=== PATIENT | female | born 1945 | race African-American/Black ===

== ENCOUNTER 2016-07-25 06:27 | Emergency (ER) | payer MEDICARE ==
[~2016-07-25 06:27] MED LIST: ALPR2TAB4 PO; ASPI-482 PO; CELE100C PO; CLON0.2T PO; CLON1PAT2 TD; CYCL10TA2 PO; DICL75TA PO; ESOM40CA PO; IBUP200C9 PO; MOVANTIK25 MG PO; OLME40TA PO; SENN15TA5 PO; SIMV20TA3 PO; SPIR25TA3 PO; hydrocodone
[2016-07-25] MEDS ORDERED: ACET325T9 PO (06:56)
--- NOTE | 2016-07-25 06:56 | PHYS DOC ---
Past Medical History Past Medical History: Anxiety, Arthritis, High Cholesterol, Hypertension Additional Past Medical Histor: ECTOPIC KIDNEY Past Surgical History: Hysterectomy, Other Additional Past Surgical Histo: LUMBARECTOMY, R KNEE ARTHROSCOPY Alcohol Use: Rarely Drug Use: None Adult General Chief Complaint Chief Complaint: LOWER EXT PAIN HPI HPI 62-year-old female with a history of hypertension presenting to the emergency department today with leg cramps. She reports that early this morning she felt cramping of both calf muscles and in her foot. She was able to massage the cramps out and is currently feeling better. She recently had her blood pressure medications changed including increasing her clonidine. The pain in her calves is a cramping sensation that is nonradiating mild intermittent and without exacerbating factors. Review of systems is negative for chest pain shortness of breath abdominal pain nausea vomiting fevers chills. She denies unilateral leg swelling history of blood clotting disorder or family history of blood clotting disorder. She denies recent immobilization of her extremities. All other review of systems is negative unless otherwise noted in history of present illness. Review of Systems Review of Systems SEE ABOVE. Allergies Allergies Allergies Coded Allergies Type Severity Reaction Last Updated Verified codeine Allergy Severe CONVULSION, TACHYCARDIA, RASH 08/30/13 Yes iodine Allergy Severe CONVULSION, TACHYCARDIA, RASH 08/30/13 Yes caffeine Adverse Reaction Severe Palpitations, TACHYCARDIA 03/17/15 No ibuprofen Adverse Reaction Intermediate HX OF ULCERS 08/30/13 No Physical Exam Physical Exam Constitutional: Well developed, well nourished, no acute distress, non-toxic appearance. HENT: Normocephalic, atraumatic, bilateral external ears normal, oropharynx moist, no oral exudates, nose normal. [] Eyes: PERRLA, EOMI, conjunctiva normal, no discharge. Neck: Normal range of motion, no tenderness, supple, no stridor. [] Cardiovascular:Heart rate regular rhythm, no murmur Lungs & Thorax: Bilateral breath sounds clear to auscultation [] Abdomen: Bowel sounds normal, soft, no tenderness, no masses, no pulsatile masses. Skin: Warm, dry, no erythema, no rash. [] Back: No tenderness, no CVA tenderness. Extremities: The patient's lower extremities are warm and well perfused with a palpable pulse. 2 second cap refill present. Patient is able to wiggle toes without difficulty. Normal sensation present. Nontender along the venous system. No clinical evidence of DVT present. Neurologic: Alert and oriented X 3, normal motor function, normal sensory function, no focal deficits noted. Psychologic: Affect normal, judgement normal, mood normal. [] Current Patient Data Vital Signs Vital Signs Date Time Temp Pulse Resp B/P Pulse Ox O2 Delivery O2 Flow Rate FiO2 07/25/16 06:40 98.0 50 14 186/81 100 Room Air 98.0 Lab Values Laboratory Tests Test 07/25/16 07:09 White Blood Count 6.8x10^3/uL (4.0-11.0) Red Blood Count 4.39x10^6/uL (3.50-5.40) Hemoglobin 12.6g/dL (12.0-15.5) Hematocrit 38.9% (36.0-47.0) Mean Corpuscular Volume 89fL (79-100) Mean Corpuscular Hemoglobin 29pg (25-35) Mean Corpuscular Hemoglobin Concent 33g/dL (31-37) Red Cell Distribution Width 14.1% (11.5-14.5) Platelet Count 299x10^3/uL (140-400) Neutrophils (%) (Auto) 60% (31-73) Lymphocytes (%) (Auto) 29% (24-48) Monocytes (%) (Auto) 7% (0-9) Eosinophils (%) (Auto) 4% (0-3) H Basophils (%) (Auto) 1% (0-3) Neutrophils # (Auto) 4.0x10^3uL (1.8-7.7) Lymphocytes # (Auto) 2.0x10^3/uL (1.0-4.8) Monocytes # (Auto) 0.4x10^3/uL (0.0-1.1) Eosinophils # (Auto) 0.2x10^3/uL (0.0-0.7) Basophils # (Auto) 0.1x10^3/uL (0.0-0.2) Sodium Level 130mmol/L (136-145) L Potassium Level 3.4mmol/L (3.5-5.1) L Chloride Level 95mmol/L (98-107) L Carbon Dioxide Level 25mmol/L (21-32) Anion Gap 10 (6-14) Blood Urea Nitrogen 7mg/dL (7-20) Creatinine 0.8mg/dL (0.6-1.0) Estimated GFR (Cockcroft-Gault) 86.3 Glucose Level 103mg/dL (70-99) H Calcium Level 9.1mg/dL (8.5-10.1) Laboratory Tests 07/25/16 07:09 Laboratory Tests 07/25/16 07:09 EKG EKG [] Radiology/Procedures Radiology/Procedures [] Course & Med Decision Making Course & Med Decision Making Pertinent Labs and Imaging studies reviewed. (See chart for details) [] 62-year-old female presenting to the emergency department with muscle cramps. Blood work obtained. I offered the patient pain medication in the emergency department however she declined as her pain was improving. She was subsequent discharged home to follow up with her primary care physician in the next 2-3 days for continued chronic hypertension management. [id number] discharge instructions and return precautions given. Patient and here with her today is comfortable with plan. Dragon Disclaimer Dragon Disclaimer This electronic medical record was generated, in whole or in part, using a voice recognition dictation system. Departure Departure Impression: Primary Impression: Muscle cramps Disposition: HOME, SELF-CARE Condition: STABLE Referrals: LAURYN DE LA FUENTE MD (PCP) Patient Instructions: Muscle Cramps Additional Instructions: Thank you for allowing us to participate in your care today. Followup with your primary care physician in 3 days if your symptoms do not improve. If you do not have a primary care provider you can ask for a list of our primary care providers. Return to the emergency department you have any new or concerning findings. This should be evaluated by the primary care physician and any necessary consulting services for continued management within a few days after discharge. Return to emergency room if you have any new or concerning symptoms including but not limited to fever, chills, nausea, vomiting, intractable pain, any new rashes, chest pain, shortness of air, uncontrolled bleeding, difficulty breathing, and/or vision loss. Scripts Potassium Chloride 10 Meq Tablet.er10 Meq PO DAILY #7 TAB Prov:GILES FREEMAN MD 07/25/16 Acetaminophen (Tylenol)325 Mg Pxpxuo100 Mg PO PRN Q8HRS PRN PAIN #20 Prov:GILES FREEMAN MD 07/25/16 GILES FREEMAN MD Jul 25, 2016 06:56
[2016-07-25 07:48] LABS: BASO # 0.1 x10^3/uL (0.0-0.2); BASO % 1 % (0-3); EOS % 4 % (0-3); HEMATOCRIT 38.9 % (36.0-47.0); HEMOGLOBIN 12.6 g/dL (12.0-15.5); LYMPH % 29 % (24-48); MEAN CORPUSCULAR HEMOGLOBIN 29 pg (25-35); MEAN CORPUSCULAR HGB CONC 33 g/dL (31-37); MEAN CORPUSCULAR VOLUME 89 fL (79-100); MONO % 7 % (0-9); NEUT % 60 % (31-73); PLATELET COUNT 299 x10^3/uL (140-400); RED BLOOD COUNT 4.39 x10^6/uL (3.50-5.40); RED CELL DISTRIBUTION WIDTH 14.1 % (11.5-14.5); WHITE BLOOD COUNT 6.8 x10^3/uL (4.0-11.0)
[2016-07-25 07:56] LABS: CALCIUM 9.1 mg/dL (8.5-10.1); CREATININE 0.8 mg/dL (0.6-1.0); GFR 86.3; POTASSIUM 3.4 mmol/L (3.5-5.1)
[2016-07-25] MEDS ORDERED: POTA10TA10 PO (08:04)
[2016-07-25 08:08] VITALS: BP 106/56
[2016-07-25] MEDS ORDERED: DIAZ2TAB PO (20:14)
== END 2016-07-25 08:28 | disposition home or self-care (01) ==
LOC: ER 06:27
DX: R25.2 Cramp and spasm (principal); E78.00 Pure hypercholesterolemia, unspecified; I10 Essential (primary) hypertension; M19.90 Unspecified osteoarthritis, unspecified site; Z90.710 Acquired absence of both cervix and uterus; Z88.5 Allergy status to narcotic agent; Z91.041 Radiographic dye allergy status; Z88.6 Allergy status to analgesic agent; Z88.8 Allergy status to other drugs, medicaments and biological substances
CPT/HCPCS: 36415; 80048; 85027; 99284

== ENCOUNTER 2016-07-25 17:05 | Emergency (ER) | payer MEDICARE ==
[~2016-07-25] VITALS: Ht 172.7 cm; Wt 80.7 kg
[~2016-07-25 17:05] MED LIST changes: +ACET325T9 PO; +POTA10TA10 PO
[2016-07-25] MEDS ORDERED: DIAZEPAM 10 MG/2 ML DISP.SYRIN. IM STA (18:51)
--- NOTE | 2016-07-25 19:02 | PHYS DOC ---
Past Medical History Past Medical History: Anxiety, Arthritis, High Cholesterol, Hypertension Additional Past Medical Histor: ECTOPIC KIDNEY Past Surgical History: Hysterectomy, Other Additional Past Surgical Histo: LUMBARECTOMY, R KNEE ARTHROSCOPY Alcohol Use: None Drug Use: None Adult General Chief Complaint Chief Complaint: MUSCLE SPASM/CRAMP [facility] HPI 70-year-old female who was seen earlier today with intense leg spasm and an elevated blood pressure had a laboratory workup earlier today that was fairly unremarkable. She was sent out on by mouth potassium replacement and told to follow-up. She states her leg cramps have not improved and she again presents for evaluation. She follows up with Dr. Tenorio for her blood pressure which she states has not been well-controlled. She is speaking in complete sentences and in no acute distress at this time. Her blood pressure is elevated at 205/87. She is due to take a clonidine dose this evening Review of Systems Review of Systems Constitutional: Denies fever or chills [] Eyes: Denies change in visual acuity, redness, or eye pain [] HENT: Denies nasal congestion or sore throat [] Respiratory: Denies cough or shortness of breath [] Cardiovascular: No additional information not addressed in HPI [] GI: Denies abdominal pain, nausea, vomiting, bloody stools or diarrhea [] : Denies dysuria or hematuria [] Musculoskeletal: Denies back pain or joint pain [] Integument: Denies rash or skin lesions [] Neurologic: Denies headache, focal weakness or sensory changes [] Endocrine: Denies polyuria or polydipsia [] Current Medications Current Medications Current Medications Medications (Trade) Dose Ordered Sig/[facility] Start Time Stop Time Status Last Admin Dose Admin Diazepam (Valium) 5 mg 1X STAT 07/25/16 18:51 07/25/16 18:53 DC 07/25/16 19:26 5 MG Allergies Allergies Allergies Coded Allergies Type Severity Reaction Last Updated Verified codeine Allergy Severe CONVULSION, TACHYCARDIA, RASH 08/30/13 Yes iodine Allergy Severe CONVULSION, TACHYCARDIA, RASH 08/30/13 Yes caffeine Adverse Reaction Severe Palpitations, TACHYCARDIA 03/17/15 No ibuprofen Adverse Reaction Intermediate HX OF ULCERS 08/30/13 No Physical Exam Physical Exam Constitutional: Well developed, well nourished, no acute distress, non-toxic appearance. [] HENT: Normocephalic, atraumatic, bilateral external ears normal, oropharynx moist, no oral exudates, nose normal. [] Eyes: PERRLA, EOMI, conjunctiva normal, no discharge. [] Neck: Normal range of motion, no tenderness, supple, no stridor. [] Cardiovascular:Heart rate regular rhythm, no murmur [] Lungs & Thorax: Bilateral breath sounds clear to auscultation [] Abdomen: Bowel sounds normal, soft, no tenderness, no masses, no pulsatile masses. [] Skin: Warm, dry, no erythema, no rash. [] Back: No tenderness, no CVA tenderness. [] Extremities: No tenderness, no cyanosis, no clubbing, ROM intact, no edema. [] Neurologic: Alert and oriented X 3, normal motor function, normal sensory function, no focal deficits noted. [] Psychologic: Affect normal, judgement normal, mood normal. [] Current Patient Data Vital Signs Vital Signs Date Time Temp Pulse Resp B/P Pulse Ox O2 Delivery O2 Flow Rate FiO2 07/25/16 19:30 50 20 202/86 96 Room Air 07/25/16 17:35 98.2 98.2 EKG EKG EKG as interpreted by me shows sinus rhythm with a rate of 50 bpm. There are no acute ischemic findings on this EKG. QTc is slightly prolonged at 438 ms. Radiology/Procedures Radiology/Procedures [] Course & Med Decision Making Course & Med Decision Making Pertinent Labs and Imaging studies reviewed. (See chart for details) 70-year-old female had a laboratory workup this morning that was fairly unremarkable. An IM injection of Valium will be given for her intense spasm. Her blood pressure will be rechecked. If valium is effective, she will be discharged with a course of Valium to have at home and to follow closely with Dr. Tenorio for her blood pressure. My reassessment, the patient's muscle spasms have improved. I'll be discharging with a course of Valium and instructed her to follow closely with her primary care doctor next several days to have her blood pressure rechecked. I instructed her to avoid any stress activities a work note will be given. Dragon Disclaimer Dragon Disclaimer This electronic medical record was generated, in whole or in part, using a voice recognition dictation system. Departure Departure Impression: Primary Impression: Muscle cramps Disposition: HOME, SELF-CARE Admitting Physician: Other Condition: IMPROVED Referrals: LAURYN TENORIO MD (PCP) Patient Instructions: Muscle Cramps, [id number] Additional Instructions: Please take your medications as prescribed and continue to rest and drink plenty of fluids. Return to the ER if you develop any worsening of your symptoms. Scripts Diazepam (Valium)2 Mg Tablet2 Mg PO BID #6 TAB Prov:PONCE TOUSSAINT DO 07/25/16 PONCE TOUSSAINT DO Jul 25, 2016 19:02
[2016-07-25 19:30] VITALS: BP 202/86
[2016-07-25] MEDS ORDERED: DIAZ2TAB PO (20:14)
--- NOTE | 2016-07-26 00:21 | EKG ---
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
== END 2016-07-25 20:26 | disposition home or self-care (01) ==
LOC: ER 17:05
DX: R25.2 Cramp and spasm (principal); E78.00 Pure hypercholesterolemia, unspecified; I10 Essential (primary) hypertension; M19.90 Unspecified osteoarthritis, unspecified site; Z90.710 Acquired absence of both cervix and uterus; Z88.5 Allergy status to narcotic agent; Z88.6 Allergy status to analgesic agent; Z88.8 Allergy status to other drugs, medicaments and biological substances; Z91.041 Radiographic dye allergy status
CPT/HCPCS: 93005; 96372; 99283; J3360

== ENCOUNTER → 2016-09-06 | Outpatient (CLI) | payer MEDICARE ==
[~2016-09-06] MED LIST changes: +DIAZ2TAB PO; +IOHEXOL 180 MG/ML 10 ML VIAL. ONE; -POTA10TA10 PO; +POTA10TA12 PO; +methylPREDNISolone ACETATE 40 MG/ML VIAL. ONE; +methylPREDNISolone ACETATE 80 MG/ML VIAL. ONE
--- NOTE | 2016-09-07 00:15 | PAIN ---
DATE OF SERVICE: 09/06/2016 DIAGNOSES: Lumbar radiculopathy with lumbar degenerative disk disease and post-lumbar laminectomy syndrome. HISTORY OF PRESENT ILLNESS: This patient is a 70-year-old female who returns for followup status post caudal epidural steroid injections, last seen in April of this year. The patient did very well ____ 75% improvement, now about 50% improvement overall in the low back and left greater than right lower extremity pain. The patient reports no new motor or sensory deficits. There is still significant pain in the low back, left hip, left posterior gluteus and thigh as well into the lower leg on the left side, somewhat on the right side as well, but not nearly as intense. The patient reports pain is a 10 on a scale of 10 at its worst, is 6 at best, it does ____ awaken her from sleep. She sleeps only about 4 hours a night. She has to reposition and get out of bed, change positions and stretch at night, which has been interrupting her sleep significantly. The patient reports otherwise no new motor or sensory deficits, no new bowel or bladder incontinence or other complaints. PHYSICAL EXAMINATION: VITAL SIGNS: The patient's blood pressure 118/71, pulse 54, respirations are 18, temperature 97.4 degrees Fahrenheit, height is 5 feet 8 inches, weighs 180 pounds. GENERAL: The patient is awake, alert, oriented, appropriate, very pleasant demeanor. HEENT: Head shows normocephalic, atraumatic. Extraocular movements are intact and symmetrical. Oral cavity shows mucous membranes moist and pink. Dentition is intact. NECK: Shows anterior throat supple without palpable lymphadenopathy noted. Swallow reflex is symmetrical. CHEST: Shows normal on inspection. Breath sounds are clear to auscultation bilaterally. HEART: Shows S1 and S2 clear. No murmurs auscultated. ABDOMEN: Soft, nontender, nondistended. No palpable organomegaly is noted. No rebound or guarding demonstrated. BACK: Shows spine grossly midline, slight flattening of lumbar lordotic curvature. Well-healed surgical scar noted. Lumbar paraspinous musculature shows symmetrical on inspection with palpation shows moderate tenderness, but only in the low lumbar distribution diffusely in the paraspinous muscles without radiation. No tenderness over the sacrum or sacroiliac regions. The patient shows good rotational motion both laterally as well as extension and flexion of lumbar spine without pain reported. LOWER EXTREMITIES: Show deep tendon reflexes 2+ in the patellar, 1+ tendo-calcaneus tendons are equal. Motor exam is strong with 5/5 dorsiflexion, extension, quadriceps and hamstring flexion and symmetrical. Options were discussed with the patient and the patient's old chart was reviewed as her current medication regimen updated. Current review of systems updated today as well. We will proceed with a caudal approach epidural steroid injection today, it is the first in this series with fluoroscopic guidance. Risks were again discussed including, but not limited to bleeding, infection, possibility of epidural hematoma, subsequent neurologic compromise, dural puncture, headaches, spinal cord and/or nerve damage, side effects of steroid medication and poor results regarding pain control. The patient understands and wishes to proceed. The patient will return to clinic in approximately 2 weeks for followup, was counseled on return appointment, activity level and side effects to be aware of. Also discussed the patient getting into pool therapy as she has done this before with good results and encouraged her to keep her stretching and strengthening exercises as well as her regular physical therapy routines at home. DIAGNOSES: Lumbar radiculopathy with lumbar degenerative disk disease and post-lumbar laminectomy syndrome. PROCEDURE: Lumbar caudal approach epidural steroid injection using C-arm fluoroscopic guidance under sterile prep and drape using local anesthetic. MEDICATION INJECTED: A total of 120 mg Depo-Medrol plus 10 mL of preservative-free normal saline and 2 mL Isovue for contrast. CONDITION AT DISCHARGE: Stable. The patient tolerated the procedure well, had no complications. CAMILO PARISI MD DR: MARK/mara JOB#: [id number] / [id number]
== END | disposition home or self-care (01) ==
LOC: PNCL 07:59
PROVIDERS: ATTEND Anesthesiology
DX: M51.16 Intervertebral disc disorders with radiculopathy, lumbar region (principal); M96.1 Postlaminectomy syndrome, not elsewhere classified
CPT/HCPCS: 62323; J1030; J1040

== ENCOUNTER → 2016-11-11 | Outpatient (CLI) | payer MEDICARE ==
[~2016-11-11] MED LIST changes: -OLME40TA PO; +OLME40TA12 PO
--- NOTE | 2016-11-11 11:59 | PAIN ---
DATE OF SERVICE: 11/11/2016 PROGRESS NOTE FOR PAIN CLINIC DIAGNOSES: Lumbar radiculopathy with lumbar degenerative disk disease and post-lumbar laminectomy syndrome. HISTORY OF PRESENT ILLNESS: The patient is a 71-year-old female who returns for followup status post lumbar epidural steroid injection, caudal approach on 09/06/2016. The patient did very well with this, reports approximately 75% improvement initially, but the pain has returned now and it is only about a 10% improvement at this time. The patient reports still pain in the lower extremities, bilateral hips, into the left leg, left gluteus, posterior lateral thigh, into the lateral posterior lower leg and into the foot on the anterior and posterior as well as the anterior aspect of the left foot. The patient reports it awakens her from sleep occasionally, but still sleeps about 4-6 hours at a time. If she repositions, takes pain medications, get out of bed, change position, they seem to improve the pain. The patient reports the left side is weaker with walking, ambulating and fatigues more easily than the right. No actual loss of motor function; however, the patient reports it as aching, tingling, constant, radiating on the left side. Rates as a 5 on a scale of 10 currently and can be as low as 2 on a scale of 10; however. The patient reports no new motor or sensory deficits, no new bowel or bladder incontinence or other complaints. PHYSICAL EXAMINATION: VITAL SIGNS: Today, the patient's blood pressure is ____, pulse 58, respirations are 20, temperature 98.1 degrees Fahrenheit, height is 5 feet 8 inches, weight is ____ pounds. GENERAL: The patient is awake, alert, oriented, appropriate, very pleasant demeanor. HEENT: Head shows normocephalic, atraumatic. Extraocular movements are intact and symmetrical. Oral cavity shows mucous membranes moist and pink. Dentition is intact. NECK: Shows anterior throat is supple without palpable lymphadenopathy noted. Swallow reflex is symmetrical. CHEST: Shows normal on inspection. Breath sounds are clear to auscultation bilaterally. HEART: Shows S1 and S2 clear. No murmurs auscultated. ABDOMEN: Soft, nontender, nondistended. No palpable organomegaly is noted. No rebound or guarding demonstrated. BACK: Shows spine grossly in the midline. Well-healed surgical scarring is again noted. Lumbar paraspinous muscle shows symmetrical on inspection with palpation shows moderate tenderness only diffusely with palpation bilaterally without radiation. The patient shows full rotational motions of lumbar spine without difficulty, flexion and extension as well. EXTREMITIES: Lower extremities show deep tendon reflexes 2+ in the patellar, 1+ tendo-calcaneus tendons are equal. Motor exam is strong with 5/5 dorsiflexion, extension, quadriceps and hamstring flexion. Options were discussed with the patient. The patient's old chart was reviewed as her current medication regimen updated. Current review of systems updated today as well. We will proceed with a second in the series caudal approach epidural steroid injection today with fluoroscopic guidance. Risks were again discussed including, but not limited to bleeding, infection, possibility of epidural hematoma, subsequent neurological compromise, dural puncture, headaches, spinal cord and/or nerve damage, side effects of steroid medication and poor results regarding pain control. The patient understands and wishes to proceed. The patient will return to clinic in approximately 2 weeks for followup, was counseled on return appointment, activity level and side effects to be aware of. DIAGNOSIS: Lumbar radiculopathy with lumbar degenerative disk disease and post-lumbar laminectomy syndrome. PROCEDURES: Lumbar epidural steroid injection in caudal approach using C-arm fluoroscopic guidance under sterile prep and drape using local anesthetic. MEDICATIONS INJECTED: A total of 120 mg of Depo-Medrol plus 10 mL of preservative-free normal saline and 2 mL of Isovue for contrast. CONDITION AT DISCHARGE: Stable. The patient tolerated the procedure well, had no complications. CAMILO PARISI MD DR: MARK/mara JOB#: [id number] / [id number]
== END | disposition home or self-care (01) ==
LOC: PNCL 08:40
PROVIDERS: ATTEND Anesthesiology
DX: M51.16 Intervertebral disc disorders with radiculopathy, lumbar region (principal); M96.1 Postlaminectomy syndrome, not elsewhere classified; Z88.6 Allergy status to analgesic agent; Z91.041 Radiographic dye allergy status; Z91.048 Other nonmedicinal substance allergy status
CPT/HCPCS: 62323; J1030; J1040

== ENCOUNTER 2016-12-11 10:52 | Emergency (ER) | payer MEDICARE ==
[~2016-12-11] VITALS: Ht 172.7 cm; Wt 79.4 kg
[~2016-12-11 10:52] MED LIST changes: -IOHEXOL 180 MG/ML 10 ML VIAL. ONE; -methylPREDNISolone ACETATE 40 MG/ML VIAL. ONE; -methylPREDNISolone ACETATE 80 MG/ML VIAL. ONE
[2016-12-11 11:10] VITALS: BP 187/84
--- NOTE | 2016-12-11 12:29 | RAD ---
Left foot, 3 views, 12/11/2016: History: Fall, pain There is a mild hallux valgus deformity with mild degenerative change at the first MTP joint. No fracture or dislocation is identified. IMPRESSION: No acute bony abnormality is detected.
--- NOTE | 2016-12-11 13:22 | PHYS DOC ---
Past Medical History Past Medical History: Anxiety, Arthritis, High Cholesterol, Hypertension Additional Past Medical Histor: ECTOPIC KIDNEY Past Surgical History: Hysterectomy, Other Additional Past Surgical Histo: LUMBARECTOMY, R KNEE ARTHROSCOPY Alcohol Use: None Drug Use: None Adult General Chief Complaint Chief Complaint: FOOT INJURY PAIN HPI HPI Patient is a 71 year old female with history of hypertension high cholesterol anxiety who presents today with mild left foot pain specifically on top of her foot when ambulating that has been going on for 2 days but she states she has history of arthritis in her knees. Patient denies any trauma. Review of Systems Review of Systems Constitutional: Denies fever or chills [] Musculoskeletal: mild left foot pain Integument: Denies rash or skin lesions [] Neurologic: Denies headache, focal weakness or sensory changes [] Allergies Allergies Allergies Coded Allergies Type Severity Reaction Last Updated Verified codeine Allergy Severe CONVULSION, TACHYCARDIA, RASH 08/30/13 Yes iodine Allergy Severe CONVULSION, TACHYCARDIA, RASH 08/30/13 Yes caffeine Adverse Reaction Severe Palpitations, TACHYCARDIA 03/17/15 No ibuprofen Adverse Reaction Intermediate HX OF ULCERS 08/30/13 No Physical Exam Physical Exam Constitutional: Well developed, well nourished, no acute distress, non-toxic appearance. [] Skin: Warm, dry, no erythema, no rash. [] Back: No tenderness, no CVA tenderness. [] Extremities: Left foot appears deformed at the first MTP joint, diffuse tenderness along the first second pad metatarsals. No tenderness on the navicular bone or the base of the fifth metatarsal of the left foot. Full range of motion to the left foot and toes. +2 left pedal pulse. Cap refill less than 2 seconds the left lower extremity. Sensation intact to the right left foot. Neurologic: Alert and oriented X 3, normal motor function, normal sensory function, no focal deficits noted. [] Psychologic: Affect normal, judgement normal, mood normal. [] Current Patient Data Vital Signs Vital Signs Date Time Temp Pulse Resp B/P (MAP) Pulse Ox O2 Delivery O2 Flow Rate FiO2 12/11/16 11:10 98.4 70 16 100 Room Air 98.4 EKG EKG [] Radiology/Procedures Radiology/Procedures []PROCEDURE: FOOT LEFT 3V Left foot, 3 views, 12/11/2016: History: Fall, pain There is a mild hallux valgus deformity with mild degenerative change at the first MTP joint. No fracture or dislocation is identified. IMPRESSION: No acute bony abnormality is detected. DICTATED and SIGNED BY: PHU VALDEZ MD DATE: 12/11/16 4809 CC: ASA SILVESTRE APRN; LAURYN DE LA FUENTE MD ~ Course & Med Decision Making Course & Med Decision Making Pertinent Labs and Imaging studies reviewed. (See chart for details) Patient is in the ED with complaints of left foot pain no known injury. Left foot x-rays interpreted by radiologist were negative for any acute findings. She was noted for having arthritis on her left foot. Recommended following up with an orthopedic doctor. Recommended icing and elevating the extremity. She states she has hydrocodone at home. Recommended she continues taking it. She is allergic to ibuprofen. Provided an orthopedic doctor for follow-up. Dragon Disclaimer Dragon Disclaimer This electronic medical record was generated, in whole or in part, using a voice recognition dictation system. Departure Departure Impression: Primary Impression: DJD (degenerative joint disease), ankle and foot Disposition: 01 HOME, SELF-CARE Condition: STABLE Referrals: LAURYN DE LA FUENTE MD (PCP) MAYRA PABON MD follow up with the orthopedic doctor provided in one week Patient Instructions: Arthritis, Degenerative-Brief Additional Instructions: You were seen for arthritis of the left foot. Please follow-up with the provided orthopedic doctor in 1-2 weeks. Continue taking your pain medicine at home. Ice and elevate the affected extremity. Problem Qualifiers Primary Impression: DJD (degenerative joint disease), ankle and foot Laterality: left Qualified Codes: M19.072 - Primary osteoarthritis, left ankle and foot ASA SILVESTRE APRN Dec 11, 2016 13:22
== END 2016-12-11 13:31 | disposition home or self-care (01) ==
LOC: ER 10:52
DX: M19.072 Primary osteoarthritis, left ankle and foot (principal); F41.9 Anxiety disorder, unspecified; E78.00 Pure hypercholesterolemia, unspecified; I10 Essential (primary) hypertension; M17.0 Bilateral primary osteoarthritis of knee; Z90.710 Acquired absence of both cervix and uterus; Z88.5 Allergy status to narcotic agent; Z88.6 Allergy status to analgesic agent; Z88.8 Allergy status to other drugs, medicaments and biological substances
CPT/HCPCS: 73630; 99284

== ENCOUNTER → 2017-02-23 | Outpatient (CLI) | payer MEDICARE ==
[~2017-02-23] MED LIST changes: +IOHEXOL 180 MG/ML 10 ML VIAL. ONE; +methylPREDNISolone ACETATE 40 MG/ML VIAL. ONE; +methylPREDNISolone ACETATE 80 MG/ML VIAL. ONE
--- NOTE | 2017-02-23 10:23 | PAIN ---
DATE OF SERVICE: 02/23/2017 DIAGNOSES: Lumbar radiculopathy with lumbar degenerative disk disease and post-lumbar laminectomy syndrome. HISTORY OF PRESENT ILLNESS: The patient is a 71-year-old female who returns for followup status post lumbar caudal epidural steroid injections, last was on 11/11/2016. The patient did very well with this with approximately 75% improvement overall. The patient reports the pain now is about 50% level of improvement in the low back, bilateral lower extremities, somewhat in the mid back as well, worse with activity, standing, walking, changing positions. The patient reports pain is stabbing, aching, dull, radiating to the lower extremities bilaterally, essentially equal right and left. The patient reports it is a 10 on a scale of 10 at its worst, at its least and its average, and is a 10 today. She reports it has been awaking her from sleep occasionally, not every night. She usually feels better with lying down or sitting down, much worse with standing, walking, changing positions or flexing and bending with repetitive motions. The patient reports no new motor or sensory deficits, no new bowel or bladder incontinence or other complaints. PHYSICAL EXAMINATION: VITAL SIGNS: Today, blood pressure 155/96, pulse 68, respirations 18, temperature 98.5 degrees Fahrenheit, weight is 180 pounds. GENERAL: The patient is awake, alert, oriented, appropriate, very pleasant demeanor. HEENT: Head shows normocephalic, atraumatic. Extraocular movements intact and symmetrical. Oral cavity: Mucous membranes moist and pink. Dentition is intact. NECK: Shows anterior throat supple without palpable lymphadenopathy noted. Swallow reflex symmetrical. CHEST: Shows normal with inspection. Breath sounds clear to auscultation bilaterally. HEART: Shows S1, S2 clear. No murmurs auscultated. ABDOMEN: Soft, nontender, nondistended. No palpable organomegaly. No rebound or guarding demonstrated. BACK: The patient's back shows spine grossly in the midline, normal appearing thoracic kyphosis, some mild flattening of the lordotic curvature. Well-healed surgical scar noted in the lumbar distribution as well. Paraspinous musculature shows symmetrical on inspection, with palpation shows some moderate tenderness with palpation bilaterally, but without radiation, without atrophy or hypertrophy. The patient shows good rotational motion of lumbar spine both laterally as well as extension and flexion without significant pain reported. EXTREMITIES: Lower extremities show deep tendon reflexes at 2+ patellar tendons, 1+ tendo calcaneus tendons. Motor exam is strong with 5/5 dorsiflexion, extension, quadriceps and hamstring flexion and are equal and symmetrical as well. Peripheral pulses are 1+ posterior tibia. No peripheral edema is noted. Options were discussed with the patient. The patient's old chart was reviewed as her current medication regimen updated. Current review of systems updated today as well. We will proceed with a third in this series of caudal approach epidural steroid injection with fluoroscopic guidance. Risks were again discussed including, but not limited to bleeding, infection, possibility of epidural hematoma and subsequent neurological compromise, dural puncture headache, spinal cord and/or nerve damage, side effects of steroid medication and poor results regarding pain control. The patient understands and wished to proceed. The patient will return to clinic in approximately 2 weeks for followup, was counseled on return home, activity level, and side effects to be aware of. DIAGNOSES: Lumbar radiculopathy with lumbar degenerative disk disease and post-lumbar laminectomy syndrome. PROCEDURE: Caudal approach epidural steroid injection using C-arm fluoroscopic guidance under sterile prep and drape using local anesthetic. MEDICATION INJECTED: A total of 120 mg Depo-Medrol plus 10 mL of preservative-free normal saline and 2 mL of Isovue for contrast. CONDITION AT DISCHARGE: Stable. The patient tolerated the procedure well, had no complications. CAMILO PARISI MD DR: MARK/mara JOB#: [id number] / [id number]
== END | disposition home or self-care (01) ==
LOC: PNCL 07:32
PROVIDERS: ATTEND Anesthesiology
DX: M51.16 Intervertebral disc disorders with radiculopathy, lumbar region (principal); M96.1 Postlaminectomy syndrome, not elsewhere classified; Z88.6 Allergy status to analgesic agent; Z91.041 Radiographic dye allergy status; Z91.018 Allergy to other foods
CPT/HCPCS: 62323; J1030; J1040

== ENCOUNTER 2017-04-04 07:31 | Emergency (ER) | payer MEDICARE ==
[2017-04-04] MEDS: KETOROLAC 60 MG/2 ML INJ. IM (09:20)
== END 2017-04-04 09:47 | disposition home or self-care (01) ==
LOC: ER 07:31
DX: M25.561 Pain in right knee (principal); E78.00 Pure hypercholesterolemia, unspecified; I10 Essential (primary) hypertension; M19.90 Unspecified osteoarthritis, unspecified site; Z90.710 Acquired absence of both cervix and uterus; Z88.5 Allergy status to narcotic agent; Z88.8 Allergy status to other drugs, medicaments and biological substances; Z91.041 Radiographic dye allergy status
CPT/HCPCS: 73564; 96372; 99284-25; J1885

== ENCOUNTER → 2017-05-09 | Outpatient (CLI) | payer MEDICARE ==
[2017-05-09 11:23] LABS: ADD MAN DIFF? NO
[2017-05-09 11:32] LABS: BASO # 0.1 x10^3/uL (0.0-0.2); BASO % 1 % (0-3); EOS # 0.3 x10^3/uL (0.0-0.7); EOS % 4 % (0-3); HEMATOCRIT 41.7 % (36.0-47.0); HEMOGLOBIN 13.6 g/dL (12.0-15.5); LYMPH # 2.5 x10^3/uL (1.0-4.8); LYMPH % 33 % (24-48); MEAN CORPUSCULAR HEMOGLOBIN 29 pg (25-35); MEAN CORPUSCULAR HGB CONC 33 g/dL (31-37); MEAN CORPUSCULAR VOLUME 88 fL (79-100); MONO # 0.4 x10^3/uL (0.0-1.1); MONO % 5 % (0-9); NEUT # 4.4 x10^3uL (1.8-7.7); NEUT % 57 % (31-73); PLATELET COUNT 346 x10^3/uL (140-400); RED BLOOD COUNT 4.73 x10^6/uL (3.50-5.40); RED CELL DISTRIBUTION WIDTH 13.8 % (11.5-14.5); WHITE BLOOD COUNT 7.7 x10^3/uL (4.0-11.0)
[2017-05-09 11:42] LABS: BILIRUBIN,URINE NEGATIVE (NEG); CLARITY,URINE CLEAR; COLOR,URINE YELLOW; GLUCOSE,URINE NEGATIVE (NEG); NITRITE,URINE NEGATIVE (NEG); PROTEIN,URINE NEGATIVE (NEG-TRACE); UROBILINOGEN,URINE 0.2 mg/dL (0.2 mg/dL)
[2017-05-09 11:50] LABS: ANION GAP 10 (6-14); BLOOD UREA NITROGEN 5 mg/dL (7-20); CALCIUM 9.7 mg/dL (8.5-10.1); CARBON DIOXIDE 27 mmol/L (21-32); CHLORIDE 100 mmol/L (98-107); CREATININE 0.7 mg/dL (0.6-1.0); GFR 100.4; GLUCOSE 79 mg/dL (70-99); POTASSIUM 3.6 mmol/L (3.5-5.1); SODIUM 137 mmol/L (136-145)
[2017-05-09 11:59] LABS: BACTERIA,URINE 0 /HPF (0-FEW); RBC,URINE 0 /HPF (0-2); SQUAMOUS EPITHELIAL CELL,UR FEW /LPF; WBC,URINE RARE /HPF (0-4)
[2017-05-09 12:25] LABS: SEDIMENTATION RATE 8 (0-25)
[2017-05-09 14:18] LABS: PARTIAL THROMBOPLASTIN TIME 28 SEC (24-38); PROTHROMBIN TIME PATIENT 12.4 SEC (11.7-14.0)
[2017-05-09 22:13] LABS: MRSA BY PCR Negative (Negative)
== END | disposition home or self-care (01) ==
LOC: SURGPAT 13:28
DX: Z01.818 Encounter for other preprocedural examination (principal); M17.11 Unilateral primary osteoarthritis, right knee; I10 Essential (primary) hypertension; Z79.899 Other long term (current) drug therapy
CPT/HCPCS: 36415; 71046; 80048; 81001; 82040; 82306; 85025; 85610; 85651; 85730; 87086; 87641

== ENCOUNTER 2017-05-24 05:36 | Inpatient (IN) | payer MEDICARE ==
[2017-05-24] MEDS ORDERED: ACETAMINOPHEN 500 MG TABLET PO (06:00)
[2017-05-24] MEDS ORDERED: CELECOXIB 200 MG CAPSULE. PO (06:00)
[2017-05-24] MEDS: IV RINGERS,LACTATED 1000ML 1,000 ML IV (06:32)
[2017-05-24] MEDS ORDERED: HYDROcodone/APAP 7.5/325MG 1 TAB TABLET (06:42)
[2017-05-24] MEDS: HYDROcodone/APAP 7.5/325MG 1 TAB TABLET PO (06:44)
[2017-05-24] MEDS ORDERED: MORPHINE SULFATE 2 MG/ML DISP.SYRIN. IV (07:00)
[2017-05-24] MEDS ORDERED: LIDOCAINE 1% PF 2 ML VIAL. ID (07:00)
[2017-05-24] MEDS ORDERED: PROCHLORPERAZINE 10 MG/2 ML VIAL. IV ×2 (07:00→09:45)
[2017-05-24] MEDS ORDERED: ONDANSETRON PF 4 MG/2 ML VIAL. IV (07:00)
[2017-05-24] MEDS ORDERED: HYDROmorphone 2 MG/ML VIAL IV (07:00)
[2017-05-24] MEDS ORDERED: fentaNYL PF VIAL 100 MCG/2 ML VIAL IV ×2 (07:00→09:45)
[2017-05-24] MEDS ORDERED: LIDOCAINE 2% PF Vial for OR 5 ML VIAL. (07:07)
[2017-05-24] MEDS ORDERED: ONDANSETRON PF 4 MG/2 ML VIAL. (07:07)
[2017-05-24] MEDS ORDERED: DEXAMETHASONE SOD PHOS 20 MG/5 ML VIAL. (07:07)
[2017-05-24] MEDS ORDERED: FAMOTIDINE 20 MG/2 ML VIAL (07:07)
[2017-05-24] MEDS ORDERED: PROPOFOL 20 ML IV (07:07)
[2017-05-24] MEDS ORDERED: ROCURONIUM 50 MG/5 ML VIAL. (07:09)
[2017-05-24] MEDS ORDERED: fentaNYL PF VIAL 100 MCG/2 ML VIAL ×3 (07:09→10:30)
[2017-05-24] MEDS ORDERED: MIDAZOLAM HCL/PF 2 MG/2 ML VIAL. (07:10)
[2017-05-24] MEDS: TRANEXAMIC ACID 1,000 MG in IV NS 50ML -- 1ST BAG INJ (07:45)
[2017-05-24] MEDS ORDERED: ePHEDrine PF IN SALINE 50 MG/5 ML DISP.SYRIN IV (07:58)
[2017-05-24] MEDS ORDERED: GLYCOPYRROLATE 1 MG/5 ML VIAL. (07:58)
[2017-05-24] MEDS: VANCOMYCIN 1 GM VIAL. (08:08)
[2017-05-24] MEDS: KETOROLAC 30 MG, ROPIVacaine 0.5% PF 60 ML, EPINEPHrine 0.5 MG in IV NORMAL SALINE 100M... INT ART (08:08)
[2017-05-24] MEDS: TOBRAMYCIN POWDER 1.2 GM VIAL. (08:08)
[2017-05-24] MEDS ORDERED: hydrALAZINE 20 MG/ML VIAL. ×2 (08:14→11:06)
[2017-05-24] MEDS ORDERED: 0.9 % SODIUM CHLORIDE 50 ML VIAL. IJ (08:14)
[2017-05-24] MEDS: TRANEXAMIC ACID 1,000 MG in IV NS 50ML -- 2ND BAG INJ (08:58)
[2017-05-24] MEDS ORDERED: NEOSTIGMINE METHYLSULFATE 5 MG/5 ML SYRINGE. (09:10)
[2017-05-24] MEDS ORDERED: oxyCODONE/APAP 7.5/325 1 TAB TABLET PO (09:45)
[2017-05-24] MEDS ORDERED: oxyCODONE/APAP 5/325 1 TAB TABLET PO (09:45)
[2017-05-24] MEDS ORDERED: HYDROcodone/APAP 7.5/325MG 1 TAB TABLET PO (09:45)
[2017-05-24] MEDS ORDERED: DEXTROSE 50% 25 GM / 50ML DISP.SYRIN. IV (09:45)
[2017-05-24] MEDS ORDERED: diphenhydrAMINE 50 MG/ML VIAL IV (09:45)
[2017-05-24] MEDS ORDERED: PROCHLORPERAZINE 5 MG TABLET. PO (09:45)
[2017-05-24] MEDS ORDERED: HYDROcodone/APAP 10/325 1 TAB TABLET PO (09:45)
[2017-05-24] MEDS ORDERED: ZOLPIDEM 5 MG TABLET. PO (09:45)
[2017-05-24] MEDS ORDERED: METOCLOPRAMIDE HCL 10 MG/2 ML VIAL. IV (09:45)
[2017-05-24] MEDS ORDERED: CYCLOBENZAPRINE 10 MG TABLET. PO (10:00)
[2017-05-24] MEDS ORDERED: SEVOFLURANE 61 TO 120 MINUTES. IH (10:06)
[2017-05-24] MEDS ORDERED: SEVOFLURANE > 120 MINUTES. IH (10:06)
[2017-05-24] MEDS: fentaNYL PF VIAL 100 MCG/2 ML VIAL IV ×5 (10:40→17:18)
[2017-05-24] MEDS: hydrALAZINE 20 MG/ML VIAL. IVP (11:10)
[2017-05-24] MEDS: IV DEXTROSE 5 %-0.45 % NACL 1,000 ML IV ×2 (11:59→22:00)
[2017-05-24] MEDS: cloNIDine HCL 0.1 MG TABLET PO ×2 (13:48→21:11)
[2017-05-24] MEDS: FERROUS SULFATE 325 MG TABLET. PO (17:00)
[2017-05-24] MEDS: KETOROLAC 30 MG, BUPIVACAINE MPF 0.25% 20 ML, EPINEPHrine 0.5 MG in TOTAL VOLUME SYRING... INT ART (18:01)
[2017-05-24] MEDS: CELECOXIB 100 MG CAPSULE. PO (21:00)
[2017-05-24] MEDS: ASPIRIN ENTERIC COATED 325 MG TABLET.DR. PO (21:10)
[2017-05-24] MEDS: ALPRAZolam 1 MG TABLET PO (21:17)
[2017-05-25] MEDS: ACETAMINOPHEN 325 MG TABLET. PO (02:11)
[2017-05-25] MEDS: 0.9 % SODIUM CHLORIDE 10 ML DISP.SYRIN. IV (02:11)
[2017-05-25] MEDS: CALCIUM CARBONATE 500 MG TAB.CHEW PO (02:11)
[2017-05-25] MEDS: PANTOPRAZOLE 40 MG TABLET.DR. PO (03:00)
[2017-05-25] MEDS: KETOROLAC 30 MG, BUPIVACAINE MPF 0.25% 20 ML, EPINEPHrine 0.5 MG in TOTAL VOLUME SYRING... INT ART (05:26)
[2017-05-25 06:13] LABS: HEMATOCRIT 28.7 % (36.0-47.0); HEMOGLOBIN 9.4 g/dL (12.0-15.5); MEAN CORPUSCULAR HEMOGLOBIN 28 pg (25-35); MEAN CORPUSCULAR HGB CONC 33 g/dL (31-37); MEAN CORPUSCULAR VOLUME 86 fL (79-100); PLATELET COUNT 237 x10^3/uL (140-400); RED BLOOD COUNT 3.34 x10^6/uL (3.50-5.40); RED CELL DISTRIBUTION WIDTH 13.5 % (11.5-14.5)
[2017-05-25] MEDS: IV DEXTROSE 5 %-0.45 % NACL 1,000 ML IV (06:15)
[2017-05-25] MEDS: FERROUS SULFATE 325 MG TABLET. PO ×2 (09:12→17:00)
[2017-05-25] MEDS: CELECOXIB 100 MG CAPSULE. PO ×2 (09:12→20:56)
[2017-05-25] MEDS: ASPIRIN ENTERIC COATED 325 MG TABLET.DR. PO ×2 (09:13→20:57)
[2017-05-25] MEDS: SENNOSIDES/DOCUSATE 8.6/50MG TABLET. PO (09:16)
[2017-05-25] MEDS: FUROSEMIDE 20 MG TABLET PO (09:16)
[2017-05-25] MEDS: CHOLECALCIFEROL (VITAMIN D3) 5,000 UNIT CAPSULE PO (09:16)
[2017-05-25] MEDS: MULTIVITAMIN with MINERAL TABLET. PO (09:16)
[2017-05-25] MEDS: CYANOCOBALAMIN (VITAMIN B-12) 1,000 MCG TABLET. PO (09:16)
[2017-05-25] MEDS: POTASSIUM CHLORIDE 10 MEQ TABLET.ER. PO (09:17)
[2017-05-25] MEDS: LOSARTAN POTASSIUM 50 MG TABLET. PO (09:19)
[2017-05-25] MEDS: cloNIDine HCL 0.1 MG TABLET PO ×3 (09:21→20:56)
[2017-05-25] MEDS: ALPRAZolam 1 MG TABLET PO ×2 (11:53→22:12)
[2017-05-25] MEDS: traMADol 50 MG TABLET PO ×2 (15:07→19:32)
[2017-05-25] MEDS: MAGNESIUM HYDROXIDE 2,400 MG/30 ML ORAL.SUSP. PO (15:09)
[2017-05-25] MEDS ORDERED: BISACODYL 10 MG SUPP.RECT. PR (16:00)
[2017-05-26 04:23] LABS: HEMATOCRIT 25.1 % (36.0-47.0); HEMOGLOBIN 8.3 g/dL (12.0-15.5); MEAN CORPUSCULAR HGB CONC 33 g/dL (31-37)
[2017-05-26] MEDS: ALPRAZolam 1 MG TABLET PO ×2 (06:28→15:51)
[2017-05-26] MEDS: traMADol 50 MG TABLET PO ×4 (06:28→21:27)
[2017-05-26] MEDS: PANTOPRAZOLE 40 MG TABLET.DR. PO (06:28)
[2017-05-26] MEDS: LOSARTAN POTASSIUM 50 MG TABLET. PO (08:56)
[2017-05-26] MEDS: CHOLECALCIFEROL (VITAMIN D3) 5,000 UNIT CAPSULE PO (08:57)
[2017-05-26] MEDS: cloNIDine HCL 0.1 MG TABLET PO ×3 (08:57→21:28)
[2017-05-26] MEDS: CELECOXIB 100 MG CAPSULE. PO ×2 (08:57→21:27)
[2017-05-26] MEDS: FUROSEMIDE 20 MG TABLET PO (08:57)
[2017-05-26] MEDS: FERROUS SULFATE 325 MG TABLET. PO ×2 (08:57→17:00)
[2017-05-26] MEDS: POTASSIUM CHLORIDE 10 MEQ TABLET.ER. PO (08:58)
[2017-05-26] MEDS: MULTIVITAMIN with MINERAL TABLET. PO (08:58)
[2017-05-26] MEDS: CYANOCOBALAMIN (VITAMIN B-12) 1,000 MCG TABLET. PO (08:58)
[2017-05-26] MEDS: SENNOSIDES/DOCUSATE 8.6/50MG TABLET. PO (08:58)
[2017-05-26] MEDS: ASPIRIN ENTERIC COATED 325 MG TABLET.DR. PO ×2 (09:01→21:26)
[2017-05-27 05:12] LABS: HEMATOCRIT 23.5 % (36.0-47.0); HEMOGLOBIN 7.7 g/dL (12.0-15.5); MEAN CORPUSCULAR HGB CONC 33 g/dL (31-37)
[2017-05-27] MEDS: PANTOPRAZOLE 40 MG TABLET.DR. PO (06:21)
[2017-05-27] MEDS: MULTIVITAMIN with MINERAL TABLET. PO (07:55)
[2017-05-27] MEDS: CELECOXIB 100 MG CAPSULE. PO (07:55)
[2017-05-27] MEDS: POTASSIUM CHLORIDE 10 MEQ TABLET.ER. PO (07:55)
[2017-05-27] MEDS: POLYETHYLENE GLYCOL 3350 17 GM PACKET. PO (07:55)
[2017-05-27] MEDS: ASPIRIN ENTERIC COATED 325 MG TABLET.DR. PO (07:55)
[2017-05-27] MEDS: FERROUS SULFATE 325 MG TABLET. PO (07:55)
[2017-05-27] MEDS: FUROSEMIDE 20 MG TABLET PO (07:55)
[2017-05-27] MEDS: CHOLECALCIFEROL (VITAMIN D3) 5,000 UNIT CAPSULE PO (07:56)
[2017-05-27] MEDS: CYANOCOBALAMIN (VITAMIN B-12) 1,000 MCG TABLET. PO (07:56)
[2017-05-27] MEDS: SENNOSIDES/DOCUSATE 8.6/50MG TABLET. PO (07:56)
[2017-05-27] MEDS: cloNIDine HCL 0.1 MG TABLET PO ×2 (07:58→14:13)
[2017-05-27] MEDS: ALPRAZolam 1 MG TABLET PO ×2 (09:38→14:13)
[2017-05-27] MEDS: traMADol 50 MG TABLET PO ×3 (09:38→14:11)
[2017-05-27] MEDS: LOSARTAN POTASSIUM 50 MG TABLET. PO (09:45)
== END 2017-05-27 14:45 | disposition home health service (06) | DRG 470 ==
LOC: OPSVCIP 05:36 → 4 SOUTHEST 11:41
PROC: 0SRC0J9 Replacement of Right Knee Joint with Synthetic Substitute, Cemented, Open Approach (ICD-10-PCS; principal; 2017-05-24 07:10)
DX: M17.11 Unilateral primary osteoarthritis, right knee (principal); I10 Essential (primary) hypertension; Z82.49 Family history of ischemic heart disease and other diseases of the circulatory system; Z83.3 Family history of diabetes mellitus; Z87.11 Personal history of peptic ulcer disease; Z90.710 Acquired absence of both cervix and uterus; Z80.9 Family history of malignant neoplasm, unspecified; Z88.5 Allergy status to narcotic agent; Z88.8 Allergy status to other drugs, medicaments and biological substances; Z91.041 Radiographic dye allergy status
CPT/HCPCS: 36415; 73560; 85014; 85018; 85027; 86850; 86900; 86901; 88305; 88311; 97110-GO; 97116-GP; 97150-GP; 97162-GP; 97165-GO; 97168-GO; 97530-GO; 97530-GP; 97535-GO; C1713; J0171; J0360; J0690; J1100; J1885; J2250; J2405; J2704; J2710; J2795; J3010; J3260; J3370; J3490; J7030; J7120; S0028

== ENCOUNTER 2017-06-13 15:12 | Emergency (ER) | payer MEDICARE | END 2017-06-13 17:49 | disposition home or self-care (01) | LOC: ER 15:12 | DX: M25.561 Pain in right knee (principal); E78.00 Pure hypercholesterolemia, unspecified; I10 Essential (primary) hypertension; Z90.710 Acquired absence of both cervix and uterus; Z88.5 Allergy status to narcotic agent; Z88.6 Allergy status to analgesic agent; Z88.8 Allergy status to other drugs, medicaments and biological substances; Z91.041 Radiographic dye allergy status; M79.604 Pain in right leg | CPT/HCPCS: 73562; 93971; 99284-25 ==

== ENCOUNTER → 2017-10-28 | Outpatient (CLI) | payer MEDICARE | END | disposition home or self-care (01) | LOC: PNCL 07:38 | DX: M51.16 Intervertebral disc disorders with radiculopathy, lumbar region (principal); M17.11 Unilateral primary osteoarthritis, right knee; I10 Essential (primary) hypertension; E78.00 Pure hypercholesterolemia, unspecified; K21.0 Gastro-esophageal reflux disease with esophagitis; Z87.11 Personal history of peptic ulcer disease | CPT/HCPCS: G0463 ==

== ENCOUNTER → 2017-11-01 | Outpatient (CLI) | payer MEDICARE ==
[2017-11-01] MEDS: GADOBUTROL 7.5 MMOL/7.5 ML VIAL IV (13:11)
== END | disposition home or self-care (01) ==
LOC: KCIC MRI 11:28
DX: M48.061 Spinal stenosis, lumbar region without neurogenic claudication (principal); M48.02 Spinal stenosis, cervical region; Z88.5 Allergy status to narcotic agent; Z91.041 Radiographic dye allergy status; Z88.8 Allergy status to other drugs, medicaments and biological substances; E78.00 Pure hypercholesterolemia, unspecified; I10 Essential (primary) hypertension; Z90.710 Acquired absence of both cervix and uterus; Z90.79 Acquired absence of other genital organ(s); Z90.721 Acquired absence of ovaries, unilateral; Z82.49 Family history of ischemic heart disease and other diseases of the circulatory system; Z80.41 Family history of malignant neoplasm of ovary; Z80.3 Family history of malignant neoplasm of breast; Z79.899 Other long term (current) drug therapy; Z87.11 Personal history of peptic ulcer disease; M17.11 Unilateral primary osteoarthritis, right knee
CPT/HCPCS: 72156; 72158; A9585

== ENCOUNTER 2018-01-10 09:03 | Emergency (ER) | payer MEDICARE ==
[~2018-01-10] VITALS: Ht 170.2 cm; Wt 77.1 kg
[~2018-01-10 09:03] MED LIST changes: +ACET500T68 PO; +ASPI325T11 PO; +CHOL100013 PO; +CYAN100031 PO; +FERR325T14 PO; +FLAX1CAP PO; +FURO-69 PO; +HYDR-2762 PO; +IBUP200T58 PO; -IOHEXOL 180 MG/ML 10 ML VIAL. ONE; +IRBE300T3 PO; +MULT1TAB52 PO; +POLY17PO29 PO; -SPIR25TA3 PO; +SPIR25TA5 PO; +TRAM50TA PO; +TURM538C PO; -methylPREDNISolone ACETATE 40 MG/ML VIAL. ONE; -methylPREDNISolone ACETATE 80 MG/ML VIAL. ONE
--- NOTE | 2018-01-10 10:03 | PHYS DOC ---
Past Medical History Past Medical History: Anxiety, Arthritis, High Cholesterol, Hypertension Additional Past Medical Histor: ECTOPIC KIDNEY, RIGHT LEG LYMPHEDEMA Past Surgical History: Hysterectomy, Other Additional Past Surgical Histo: LUMBARECTOMY, R KNEE ARTHROSCOPY Alcohol Use: Rarely Drug Use: None Adult General Chief Complaint Chief Complaint: OTHER COMPLAINTS [facility] HPI Patient is a 72 year old female who presents with eating a bowl of chili last night at [employer] and after she ate it she noticed her left lower lip is numb. Patient states that it feels like as if she had a dental procedure numbed her mouth. Patient states this morning is only gotten slightly better but is still there. Review of Systems Review of Systems Constitutional: Denies fever or chills [] Eyes: Denies change in visual acuity, redness, or eye pain [] HENT: Denies nasal congestion or sore throat [] Respiratory: Denies cough or shortness of breath [] Cardiovascular: No additional information not addressed in HPI [] GI: Denies abdominal pain, nausea, vomiting, bloody stools or diarrhea [] : Denies dysuria or hematuria [] Musculoskeletal: Denies back pain or joint pain [] Integument: Denies rash or skin lesions [] Neurologic: Denies headache, focal weakness. Left lower lip numbness sensory changes [] Endocrine: Denies polyuria or polydipsia [] All other systems were reviewed and found to be within normal limits, except as documented in this note. Allergies Allergies Allergies Coded Allergies Type Severity Reaction Last Updated Verified codeine Allergy Severe CONVULSION, TACHYCARDIA, RASH 01/10/18 Yes iodine Allergy Severe CONVULSION, TACHYCARDIA, RASH 01/10/18 Yes caffeine Adverse Reaction Severe Palpitations, TACHYCARDIA 01/10/18 Yes Iodinated Contrast- Oral and IV Dye Adverse Reaction Intermediate Itching 01/10 Yes ibuprofen Adverse Reaction Intermediate HX OF ULCERS 01/10/18 Yes Physical Exam Physical Exam Constitutional: Well developed, well nourished, no acute distress, non-toxic appearance. [] HENT: Normocephalic, atraumatic, bilateral external ears normal, oropharynx moist, no oral exudates, nose normal. [] Eyes: PERRLA, EOMI, conjunctiva normal, no discharge. [] Neck: Normal range of motion, no tenderness, supple, no stridor. [] Cardiovascular:Heart rate regular rhythm, no murmur [] Lungs & Thorax: Bilateral breath sounds clear to auscultation [] Abdomen: Bowel sounds normal, soft, no tenderness, no masses, no pulsatile masses. [] Skin: Warm, dry, no erythema, no rash. [] Back: No tenderness, no CVA tenderness. [] Extremities: No tenderness, no cyanosis, no clubbing, ROM intact, no edema. [] Neurologic: Alert and oriented X 3, normal motor function, left lower lip numbness sensory abnormality, Left lower lip drooping, no focal deficits noted. [] Psychologic: Affect normal, judgement normal, mood normal. [] Current Patient Data Vital Signs Vital Signs Date Time Temp Pulse Resp B/P (MAP) Pulse Ox O2 Delivery O2 Flow Rate FiO2 01/10/18 12:05 73 18 172/85 (114) 98 Room Air 01/10/18 09:10 97.6 97.6 Lab Values Laboratory Tests Test 01/10/18 11:15 White Blood Count 9.5 x10^3/uL (4.0-11.0) Red Blood Count 5.03 x10^6/uL (3.50-5.40) Hemoglobin 14.6 g/dL (12.0-15.5) Hematocrit 44.6 % (36.0-47.0) Mean Corpuscular Volume 89 fL (79-100) Mean Corpuscular Hemoglobin 29 pg (25-35) Mean Corpuscular Hemoglobin Concent 33 g/dL (31-37) Red Cell Distribution Width 14.4 % (11.5-14.5) Platelet Count 318 x10^3/uL (140-400) Neutrophils (%) (Auto) 59 % (31-73) Lymphocytes (%) (Auto) 34 % (24-48) Monocytes (%) (Auto) 4 % (0-9) Eosinophils (%) (Auto) 3 % (0-3) Basophils (%) (Auto) 1 % (0-3) Neutrophils # (Auto) 5.5 x10^3uL (1.8-7.7) Lymphocytes # (Auto) 3.2 x10^3/uL (1.0-4.8) Monocytes # (Auto) 0.4 x10^3/uL (0.0-1.1) Eosinophils # (Auto) 0.3 x10^3/uL (0.0-0.7) Basophils # (Auto) 0.1 x10^3/uL (0.0-0.2) Prothrombin Time 11.8 SEC (11.7-14.0) Prothrombin Time INR 0.9 (0.8-1.1) Sodium Level 134 mmol/L (136-145) L Potassium Level 4.7 mmol/L (3.5-5.1) Chloride Level 100 mmol/L (98-107) Carbon Dioxide Level 26 mmol/L (21-32) Anion Gap 8 (6-14) Blood Urea Nitrogen 10 mg/dL (7-20) Creatinine 0.9 mg/dL (0.6-1.0) Estimated GFR (Cockcroft-Gault) 74.9 Glucose Level 93 mg/dL (70-99) Calcium Level 10.1 mg/dL (8.5-10.1) Troponin I Quantitative < 0.017 ng/mL (0.000-0.055) Laboratory Tests 01/10/18 11:15 Laboratory Tests 01/10/18 11:15 EKG EKG Sinus Moi, no STEMI. Read by Dr Sethi Radiology/Procedures Radiology/Procedures MRI Brain Impressions: [facility] [address] [place], [place] [id number] IMAGING REPORT Signed PATIENT: KEV MOFFETT ACCOUNT: [id number] : 1945 LOCATION: ER AGE: 72 SEX: F EXAM STATUS: REG ER ORD. PHYSICIAN: MOLINA JANSEN APRN REASON: Lip numbness PROCEDURE: BRAIN W/O CONTRAST MRI of the brain without contrast 01/10/2018 Clinical History: Left-sided facial numbness for 2 days. Technique: Unenhanced T1-weighted sagittal and axial, T2-weighted axial and coronal and FLAIR, gradient echo and diffusion-weighted axial images of the brain were obtained. Findings: No previous imaging studies are available for comparison. There is generalized parenchymal atrophy. Patchy, confluent and multiple small focal areas of increased signal intensity are seen within the periventricular and subcortical white matter of both cerebral hemispheres on the FLAIR and T2-weighted images consistent with areas of small vessel ischemic disease. No acute parenchymal abnormality is seen. No extra-axial fluid collection is seen. There is no MRI evidence of acute ischemia/infarction. Mild mucosal thickening in seen scattered throughout the paranasal sinuses. Normal flow voids are seen within the major vascular structures surrounding the brain parenchyma. Impression: No acute parenchymal abnormality is seen. Electronically signed by: Edwin Gallegos MD (01/10/2018 11:46 AM) [id number] DICTATED and SIGNED BY: EDWIN GALLEGOS MD DATE: 01/10/18 1134 Course & Med Decision Making Course & Med Decision Making Patient is a 72 year old female who presents with eating a bowl of chili last night at [employer] and after she ate it she noticed her left lower lip is numb. Patient states that it feels like as if she had a dental procedure numbed her mouth. Patient states this morning is only gotten slightly better but is still there. Patient denies headache, chest pain, shortness of air, dizziness. Patient walks with steady gait. Patient denies any weaknesses or numbness and tingling in any other part of her body. She states that she has a doctor's appointment later today already but decided come to the emergency room. Patient denies having any pain or visual changes. Pupils are PERRLA. Patient speaks in clear full sentences. Patient is alert and oriented. Patient's left lip does look slightly lower than the right lip but when she smiles is equal. Follows all commands appropriately. Patient answers all questions appropriately. Patient 's EKG shows sinus bradycardia with a heart rate of 45. But there is no STEMI. EKG was read by Dr. Sethi. Patient states that she is allergic to codeine, iodine , IV contrast, [place], Ibuprofen. Patient's past history she reports a knee replacement, arthritis, high cholesterol, hypertension, right lower leg lymphedema, hysterectomy, lumbarectomy, states she does not smoke, no drugs, no alcohol use. NIH score 1. MRI Brain shows No acute parenchymal abnormality is seen. Blood work is unremarkable. Upon reassessment the patietn denies any pain and states that the numbness is not very slight in her left lip. Patient is stable and in no distress. Patient will be discharged with follow up with Dr Tenorio. [] Dragon Disclaimer Dragon Disclaimer This electronic medical record was generated, in whole or in part, using a voice recognition dictation system. NIHSS Stroke Scale NIH Stroke Scale: NIH Stroke Scale Response (Comments) Value Level of Consciousness: 0 Alert/Responsive 0 LOC Questions: 0 Answers both correctly 0 LOC Commands: 0 Performs both tasks 0 Best Gaze: 0 Normal 0 Visual: 0 No visual loss 0 Facial Palsy: 0 Normal, symmetrical 0 Motor - Left Arm 0 No drift 0 Motor - Right Arm 0 No drift 0 Motor - Left Leg 0 No drift 0 Motor: Right Leg 0 No drift 0 Limb Ataxia: 0 Absent 0 Sensory: 1 Mid to moderate loss 1 Best Language: 0 Normal 0 Dysathria: 0 Normal 0 Extinction and Inattention: 0 Normal 0 Total 1 Departure Departure Impression: Primary Impression: Numbness and tingling Disposition: 01 HOME, SELF-CARE Admitting Physician: Sharad Tenorio Referrals: SHARAD TENORIO MD (PCP) Patient Instructions: Paresthesia Additional Instructions: FOLLOW UP WITH DR TENORIO SOON POSSIBLE MOLINA JANSEN APRN Jan 10, 2018 10:03
--- NOTE | 2018-01-10 11:09 | EKG ---
[facility] [address] [place] [address] Test Date: 2018-01-10 Test Time: 09:45:51 Pat Name: KEV MOFFETT Department: Room: Gender: F [employer] Worker: HUSEYIN : 1945 Requested By: MOLINA JANSEN Order Number: [id number] Reading MD: Tomy Park MD Measurements Intervals [place] Rate: 45 P: 35 LA: 168 QRS: 3 QRSD: 80 T: 49 QT: 442 QTc: 384 Interpretive Statements SINUS BRADYCARDIA Electronically Signed On 01-11-2018 12:27:39 CDT by Tomy Park MD
[2018-01-10] MEDS ORDERED: CLON0.2T PO (11:20)
[2018-01-10] MEDS ORDERED: POTA20TA82 PO (11:23)
[2018-01-10] MEDS ORDERED: UBID1CAP41 PO (11:23)
[2018-01-10] MEDS ORDERED: CELE100C PO (11:23)
[2018-01-10 11:28] LABS: BASO # 0.1 x10^3/uL (0.0-0.2); BASO % 1 % (0-3); EOS # 0.3 x10^3/uL (0.0-0.7); EOS % 3 % (0-3); HEMATOCRIT 44.6 % (36.0-47.0); HEMOGLOBIN 14.6 g/dL (12.0-15.5); LYMPH # 3.2 x10^3/uL (1.0-4.8); LYMPH % 34 % (24-48); MEAN CORPUSCULAR HEMOGLOBIN 29 pg (25-35); MEAN CORPUSCULAR HGB CONC 33 g/dL (31-37); MEAN CORPUSCULAR VOLUME 89 fL (79-100); MONO # 0.4 x10^3/uL (0.0-1.1); MONO % 4 % (0-9); NEUT # 5.5 x10^3uL (1.8-7.7); NEUT % 59 % (31-73); PLATELET COUNT 318 x10^3/uL (140-400); RED BLOOD COUNT 5.03 x10^6/uL (3.50-5.40); RED CELL DISTRIBUTION WIDTH 14.4 % (11.5-14.5); WHITE BLOOD COUNT 9.5 x10^3/uL (4.0-11.0)
[2018-01-10 11:38] LABS: CALCIUM 10.1 mg/dL (8.5-10.1); CREATININE 0.9 mg/dL (0.6-1.0); GFR 74.9; POTASSIUM 4.7 mmol/L (3.5-5.1)
[2018-01-10 11:39] LABS: PROTHROMBIN TIME PATIENT 11.8 SEC (11.7-14.0)
--- NOTE | 2018-01-10 11:49 | RAD ---
MRI of the brain without contrast 01/10/2018 Clinical History: Left-sided facial numbness for 2 days. Technique: Unenhanced T1-weighted sagittal and axial, T2-weighted axial and coronal and FLAIR, gradient echo and diffusion-weighted axial images of the brain were obtained. Findings: No previous imaging studies are available for comparison. There is generalized parenchymal atrophy. Patchy, confluent and multiple small focal areas of increased signal intensity are seen within the periventricular and subcortical white matter of both cerebral hemispheres on the FLAIR and T2-weighted images consistent with areas of small vessel ischemic disease. No acute parenchymal abnormality is seen. No extra-axial fluid collection is seen. There is no MRI evidence of acute ischemia/infarction. Mild mucosal thickening in seen scattered throughout the paranasal sinuses. Normal flow voids are seen within the major vascular structures surrounding the brain parenchyma. Impression: No acute parenchymal abnormality is seen. Electronically signed by: Edwin Gallegos MD (01/10/2018 11:46 AM) [id number]
[2018-01-10 12:05] VITALS: BP 172/85
== END 2018-01-10 12:12 | disposition home or self-care (01) ==
LOC: ER 09:03
DX: R20.0 Anesthesia of skin (principal); R20.2 Paresthesia of skin; E78.00 Pure hypercholesterolemia, unspecified; I10 Essential (primary) hypertension; Z88.5 Allergy status to narcotic agent; Z88.8 Allergy status to other drugs, medicaments and biological substances; Z91.041 Radiographic dye allergy status
CPT/HCPCS: 36415; 70551; 80048; 84484; 85025; 85610; 93005; 99285-25

== ENCOUNTER → 2018-05-30 | Outpatient (CLI) | payer MEDICARE ==
[2018-03-13 19:46] VITALS: BP 115/59
[~2018-05-30] MED LIST changes: +ALBU2.5V8 INH; +APIX5TAB PO; +DOXY100C2 PO; -HYDR-2762 PO; +HYDR-2765 PO; +POTA20TA82 PO; +PRED20TA PO; +UBID1CAP41 PO
== END | disposition home or self-care (01) ==
LOC: LAB 15:32
PROVIDERS: ATTEND Orthopaedic Surgery
DX: T84.84XD Pain due to internal orthopedic prosthetic devices, implants and grafts, subsequent encounter (principal); X58.XXXD Exposure to other specified factors, subsequent encounter
CPT/HCPCS: 36415; 85651; 86140

== ENCOUNTER → 2018-06-02 | Outpatient (CLI) | payer MEDICARE ==
[2018-03-13 19:46] VITALS: BP 115/59
--- NOTE | 2018-06-02 11:33 | RAD ---
CHEST PA LATERAL Clinical indications: Acute pulmonary embolism without acute cor pulmonology. COMPARISON: May 30, 2017 Findings: Old granulomatous disease is evident. No acute lung infiltrate or pleural effusion or pulmonary edema or lung mass or pneumothorax is seen. The heart size, pulmonary vasculature, mediastinum and both tiffani are unremarkable. The osseous structures appear intact. Impression: No acute radiographic abnormality is seen. Electronically signed by: Migue Atkins MD (06/02/2018 11:30 AM) [facility]
== END | disposition home or self-care (01) ==
LOC: RAD 08:52
PROVIDERS: ATTEND Internal Medicine Hematology & Oncology
DX: I26.99 Other pulmonary embolism without acute cor pulmonale (principal); D71 Functional disorders of polymorphonuclear neutrophils
CPT/HCPCS: 71046

== ENCOUNTER → 2018-06-07 | Outpatient (CLI) | payer MEDICARE ==
[2018-03-13 19:46] VITALS: BP 115/59
--- NOTE | 2018-06-07 09:37 | RAD ---
CHEST PA LATERAL CLINICAL INDICATION: POST VQ SCAN, PE COMPARISON: 06/02/2018 FINDINGS: Heart is normal in size. Couple of calcified granuloma in the left lung. No focal consolidation. No pneumothorax or pleural effusion. Visualized bony thorax is within normal limits. IMPRESSION: No acute pulmonary process. Electronically signed by: Misha Kam DO (06/07/2018 9:34 AM) [id number]
--- NOTE | 2018-06-07 09:41 | RAD ---
Indication: History of PE 3 months ago. TECHNIQUE: Nuclear medicine VQ scan with 18.0 mCi of xenon-133 for ventilation scan and 6.6 mCi of technetium 99m MAA for perfusion scan. COMPARISON: Previous exam from 03/12/2018. FINDINGS: The ventilation images demonstrate appropriate washout and washout of ventilation agent. Many of the previously seen ventilation/perfusion mismatches are not seen on current exam. Only single stable small wedge-shaped area of ventilation/perfusion mismatch is seen in the apical posterior segment of the left upper lobe. IMPRESSION: 1. Resolution of multiple previously seen ventilation/perfusion mismatches. 2. Low probability VQ scan for new PE. Electronically signed by: Misha Kam DO (06/07/2018 9:38 AM) [id number]
== END | disposition home or self-care (01) ==
LOC: NM 08:25
PROVIDERS: ATTEND Internal Medicine Hematology & Oncology
DX: I26.99 Other pulmonary embolism without acute cor pulmonale (principal); I10 Essential (primary) hypertension; Z79.01 Long term (current) use of anticoagulants
CPT/HCPCS: 71046; 78582; 96374; A9540; A9558

== ENCOUNTER → 2018-07-12 | Outpatient (CLI) | payer MEDICARE ==
[2018-03-13 19:46] VITALS: BP 115/59
[~2018-07-12] MED LIST changes: +BARIUM SULFATE 2.1% 450 ML SUSP PO ONE
--- NOTE | 2018-07-12 15:13 | KCIC ---
CT study abdomen and pelvis without IV contrast Clinical indications: Generalized abdominal pain. Chronic constipation. History of pelvic kidney. TECHNIQUE: Non-IV contrast helical CT scanning of the abdomen and pelvis was performed. GI contrast was administered per mouth. PQRS compliance Statement One or more of the following individualized dose reduction techniques were utilized for this study: 1. Automated exposure control 2. Adjustment of the mA and/or kV according to patient size 3. Use of iterative reconstruction technique COMPARISON: March 13, 2018. FINDINGS: The liver and spleen and pancreas are homogeneous in appearance on this noncontrast study. The gallbladder contains small radiopaque gallstones. No extrahepatic biliary ductal dilatation is seen. No adrenal mass is evident. Right-sided pelvic kidney is seen. No hydronephrosis or hydroureter is evident on either side. No renal mass is seen on either side on this noncontrast study. The urinary bladder wall is smooth. Uterus is surgically absent. The appendix is normal. No obstructive bowel pattern is evident. The terminal ileum is unremarkable. No free air or free fluid or mesenteric edema is seen. Moderate fecal retention is seen throughout the colon and rectosigmoid region. No focal aneurysmal dilatation of the abdominal aorta is seen. No enlarged abdominal or pelvic lymphadenopathy is evident. Calcified granuloma of the left lung base is seen. No lytic process is seen. IMPRESSION: Cholelithiasis. No acute abnormality of the abdomen or pelvis. Moderate fecal retention. Electronically signed by: Migue Atkins MD (07/12/2018 3:10 PM) [id number]
== END | disposition home or self-care (01) ==
LOC: KCIC CT 13:25
PROVIDERS: ATTEND Internal Medicine Gastroenterology
DX: K80.20 Calculus of gallbladder without cholecystitis without obstruction (principal); K59.00 Constipation, unspecified; J84.10 Pulmonary fibrosis, unspecified; Z90.710 Acquired absence of both cervix and uterus
CPT/HCPCS: 74176

== ENCOUNTER 2019-01-17 12:25 | Observation (INO) | payer MEDICARE ==
[~2019-01-17] VITALS: Ht 172.7 cm; Wt 76.7 kg
[~2019-01-17 12:25] MED LIST changes: -BARIUM SULFATE 2.1% 450 ML SUSP PO ONE; -CLON1PAT2 TD; +CLON1PAT6 TD; +SIMV20TA18 PO; -SIMV20TA3 PO
[2019-01-17] MEDS ORDERED: IV NORMAL SALINE 1000ML BAG 1,000 ML IV SCH ×2 (12:53→15:20)
[2019-01-17] MEDS ORDERED: ONDANSETRON PF 4 MG/2 ML VIAL. IV ONE (13:00)
[2019-01-17] MEDS ORDERED: fentaNYL PF VIAL 100 MCG/2 ML VIAL IV ONE (13:00)
--- NOTE | 2019-01-17 13:36 | RAD ---
CT Abdomen and Pelvis without contrast History: Upper abdominal pain Technique: Noncontrast CT imaging was performed of the abdomen and pelvis. Multiplanar images are reviewed. Exposure: One or more of the following individualized dose reduction techniques were utilized for this examination: 1. Automated exposure control 2. Adjustment of the mA and/or kV according to patient size 3. Use of iterative reconstruction technique. Comparison: March 13, 2018 Findings: There is calcified granuloma of the visualized left lower lobe. There is cholelithiasis. There is no adrenal nodularity. Accurate evaluation of abdominal visceral organs is limited without intravenous contrast, no obvious focal abnormality of the liver, spleen, pancreas. There is again right pelvic kidney. There is no hydronephrosis. Accurate evaluation of abdominal visceral organs is limited without oral contrast. Bowel is not significantly dilated. There is no free air or free fluid. There are some air-fluid levels in the colon. There is sigmoid diverticulosis. In is difficult to exclude degree of sigmoid and descending colon wall thickening on this exam, no adjacent inflammatory-type change. Appendix is not confidently identified on this exam, no significant pericecal inflammatory type change. There is some scattered atherosclerotic calcification of abdominal aorta and iliac arteries. There is multilevel lumbar facet degenerative change. There is advanced L4-5 degenerative disc disease. There is grade 1 anterior spondylolisthesis L4-5. There is probable moderate to severe spinal stenosis at L4-5. There is likely at least moderate left greater than right L4-5 neural foramina compromise. There is mild lumbar levoscoliosis. Impression: 1. There is cholelithiasis. 2. There is again right pelvic kidney. There is no hydronephrosis of either kidney. 3. It is difficult to exclude component of sigmoid and descending colonic wall thickening as could be seen with colitis in the appropriate clinical setting although findings could be due to incomplete distention. There are some nonspecific air-fluid levels in the colon. Appendix is not confidently identified on this exam. There is sigmoid diverticulosis. 4. There is grade 1 anterior spondylolisthesis L4-5 at which there is facet degenerative change. There is also fairly advanced L4-5 degenerative disc disease and suspected moderate to severe spinal stenosis, also bilateral neural foramina compromise. Electronically signed by: Antione Wu MD (01/17/2019 1:33 PM) [id number]
[2019-01-17 13:43] LABS: BASO % 0 % (0-3); EOS # 0.1 x10^3/uL (0.0-0.7); EOS % 1 % (0-3); HEMATOCRIT 40.8 % (36.0-47.0); HEMOGLOBIN 13.4 g/dL (12.0-15.5); LYMPH # 0.8 x10^3/uL (1.0-4.8); LYMPH % 6 % (24-48); MEAN CORPUSCULAR HEMOGLOBIN 29 pg (25-35); MEAN CORPUSCULAR HGB CONC 33 g/dL (31-37); MEAN CORPUSCULAR VOLUME 89 fL (79-100); MONO # 0.4 x10^3/uL (0.0-1.1); MONO % 3 % (0-9); NEUT # 11.6 x10^3/uL (1.8-7.7); NEUT % 90 % (31-73); PLATELET COUNT 264 x10^3/uL (140-400); RED BLOOD COUNT 4.58 x10^6/uL (3.50-5.40); RED CELL DISTRIBUTION WIDTH 14.6 % (11.5-14.5); WHITE BLOOD COUNT 12.9 x10^3/uL (4.0-11.0)
[2019-01-17 13:52] LABS: PROTHROMBIN TIME PATIENT 13.8 SEC (11.7-14.0)
[2019-01-17 13:55] LABS: CALCIUM 8.9 mg/dL (8.5-10.1); CREATININE 0.9 mg/dL (0.6-1.0); GFR 74.7; POTASSIUM 3.8 mmol/L (3.5-5.1)
[2019-01-17 14:01] LABS: ALBUMIN 3.5 g/dL (3.4-5.0); TOTAL BILIRUBIN 0.4 mg/dL (0.2-1.0); TOTAL PROTEIN 6.9 g/dL (6.4-8.2)
[2019-01-17 14:10] LABS: % EOS 1 % (0-5); % LYMPHS 7 % (24-48); % MONOS 4 % (0-10); % SEGS 88 % (35-66); PLT ESTIMATE ADEQUATE (ADEQUATE); TOXIC VACUOLATION SLIGHT
[2019-01-17 14:16] LABS: BILIRUBIN,URINE NEGATIVE (NEG); CLARITY,URINE CLEAR; COLOR,URINE YELLOW; NITRITE,URINE NEGATIVE (NEG); PROTEIN,URINE NEGATIVE (NEG-TRACE); UROBILINOGEN,URINE 0.2 mg/dL (0.2 mg/dL)
--- NOTE | 2019-01-17 14:18 | PHYS DOC ---
Past Medical History Past Medical History: Anxiety, Arthritis, Hypertension Additional Past Medical Histor: ECTOPIC KIDNEY, RIGHT LEG LYMPHEDEMA Past Surgical History: Hysterectomy, Other Additional Past Surgical Histo: LUMBARECTOMY, R KNEE ARTHROSCOPY Alcohol Use: Rarely Drug Use: None Adult General Chief Complaint Chief Complaint: ABDOMINAL PAIN [facility] HPI Patient is a 73 year old female who presents with complaining of abdominal pain. Patient complaining of sudden onset of left upper quadrant pain since 2200 last night that became as a generalized abdominal pain. Patient denies radiation of pain and rated her pain 8/10. Patient complaining of anorexia and nasal conge stion that caused nausea for her. Patient complaining of chronic constipation and is stationed formed bowel movement today with improvement of her pain. She did not have abdominal surgery. She denies fever and chills, chest pain, shortness of breath, cough, urinary symptoms, sick contact, history of the same pain. Review of Systems Review of Systems Constitutional: Denies fever or chills [] Eyes: Denies change in visual acuity, redness, or eye pain [] HENT: Denies nasal congestion or sore throat [] Respiratory: Denies cough or shortness of breath [] Cardiovascular: No additional information not addressed in HPI [] GI: Reports abdominal pain, nausea, constipation, denies vomiting, bloody stools or diarrhea [] : Denies dysuria or hematuria [] Musculoskeletal: Denies back pain or joint pain [] Integument: Denies rash or skin lesions [] Neurologic: Denies headache, focal weakness or sensory changes [] Endocrine: Denies polyuria or polydipsia [] All other systems were reviewed and found to be within normal limits, except as documented in this note. Current Medications Current Medications Current Medications Medications (Trade) Dose Ordered Sig/[facility] Start Time Stop Time Status Last Admin Dose Admin Fentanyl Citrate (Fentanyl 2ml Vial) 50 mcg 1X ONCE 01/17/19 13:00 01/17/19 13:01 DC 01/17/19 13:39 50 MCG Ondansetron HCl (Zofran) 4 mg 1X ONCE 01/17/19 13:00 01/17/19 13:01 DC 01/17/19 13:39 4 MG Sodium Chloride 1,000 ml @ 1,000 mls/hr Q1H 01/17/19 12:53 01/17/19 13:52 DC 01/17/19 12:53 1,000 MLS/HR Allergies Allergies Allergies Coded Allergies Type Severity Reaction Last Updated Verified codeine Allergy Severe CONVULSION, TACHYCARDIA, RASH 01/10/18 Yes iodine Allergy Severe CONVULSION, TACHYCARDIA, RASH 01/10/18 Yes caffeine Adverse Reaction Severe Palpitations, TACHYCARDIA 01/10/18 Yes Iodinated Contrast Media Adverse Reaction Intermediate Itching 01/10/18 Yes ibuprofen Adverse Reaction Intermediate HX OF ULCERS 01/10/18 Yes Physical Exam Physical Exam Constitutional: Well developed, well nourished, mild distress, non-toxic appearance. [] HENT: Normocephalic, atraumatic. Eyes: PERRLA, EOMI, conjunctiva normal, no discharge. [] Neck: Normal range of motion, no tenderness, supple, no stridor. [] Cardiovascular:Heart rate regular rhythm, no murmur [] Lungs & Thorax: Bilateral breath sounds clear to auscultation [] Abdomen: Abdomen mildly distended with gas, hyperactive bowel sounds, soft, no tenderness, no masses, no pulsatile masses. [] Skin: Warm, dry, no erythema, no rash. [] Back: No tenderness, no CVA tenderness. [] Extremities: No tenderness, no cyanosis, no clubbing, ROM intact, no edema. [] Neurologic: Alert and oriented X 3, no focal deficits noted. [] Psychologic: Affect normal, judgement normal, mood normal. [] Current Patient Data Vital Signs Vital Signs Date Time Temp Pulse Resp B/P (MAP) Pulse Ox O2 Delivery O2 Flow Rate FiO2 01/17/19 13:39 16 98 Room Air 01/17/19 12:30 98.6 76 174/78 (110) 98.6 Lab Values Laboratory Tests Test 01/17/19 13:25 01/17/19 13:55 White Blood Count 12.9 x10^3/uL (4.0-11.0) H Red Blood Count 4.58 x10^6/uL (3.50-5.40) Hemoglobin 13.4 g/dL (12.0-15.5) Hematocrit 40.8 % (36.0-47.0) Mean Corpuscular Volume 89 fL (79-100) Mean Corpuscular Hemoglobin 29 pg (25-35) Mean Corpuscular Hemoglobin Concent 33 g/dL (31-37) Red Cell Distribution Width 14.6 % (11.5-14.5) H Platelet Count 264 x10^3/uL (140-400) Neutrophils (%) (Auto) 90 % (31-73) H Lymphocytes (%) (Auto) 6 % (24-48) L Monocytes (%) (Auto) 3 % (0-9) Eosinophils (%) (Auto) 1 % (0-3) Basophils (%) (Auto) 0 % (0-3) Neutrophils # (Auto) 11.6 x10^3/uL (1.8-7.7) H Lymphocytes # (Auto) 0.8 x10^3/uL (1.0-4.8) L Monocytes # (Auto) 0.4 x10^3/uL (0.0-1.1) Eosinophils # (Auto) 0.1 x10^3/uL (0.0-0.7) Basophils # (Auto) 0.0 x10^3/uL (0.0-0.2) Segmented Neutrophils % 88 % (35-66) H Lymphocytes % 7 % (24-48) L Monocytes % 4 % (0-10) Eosinophils % 1 % (0-5) Toxic Vacuolation Slight Platelet Estimate Adequate (ADEQUATE) Prothrombin Time 13.8 SEC (11.7-14.0) Prothrombin Time INR 1.1 (0.8-1.1) Sodium Level 137 mmol/L (136-145) Potassium Level 3.8 mmol/L (3.5-5.1) Chloride Level 103 mmol/L (98-107) Carbon Dioxide Level 22 mmol/L (21-32) Anion Gap 12 (6-14) Blood Urea Nitrogen 11 mg/dL (7-20) Creatinine 0.9 mg/dL (0.6-1.0) Estimated GFR (Cockcroft-Gault) 74.7 BUN/Creatinine Ratio 12 (6-20) Glucose Level 109 mg/dL (70-99) H Calcium Level 8.9 mg/dL (8.5-10.1) Total Bilirubin 0.4 mg/dL (0.2-1.0) Aspartate Amino Transferase (AST) 15 U/L (15-37) Alanine Aminotransferase (ALT) 16 U/L (14-59) Alkaline Phosphatase 82 U/L (46-116) Troponin I Quantitative < 0.017 ng/mL (0.000-0.055) Total Protein 6.9 g/dL (6.4-8.2) Albumin 3.5 g/dL (3.4-5.0) Albumin/Globulin Ratio 1.0 (1.0-1.7) Lipase 85 U/L (73-393) Urine Collection Type Unknown Urine Color Yellow Urine Clarity Clear Urine pH 6.0 Urine Specific [place] <=1.005 Urine Protein Negative mg/dL (NEG-TRACE) Urine Glucose (UA) Negative mg/dL (NEG) Urine Ketones (Stick) Negative mg/dL (NEG) Urine Blood Negative (NEG) Urine Nitrite Negative (NEG) Urine Bilirubin Negative (NEG) Urine Urobilinogen Dipstick 0.2 mg/dL (0.2 mg/dL) Urine Leukocyte Esterase Trace (NEG) Urine RBC Occ /HPF (0-2) Urine WBC Occ /HPF (0-4) Urine Squamous Epithelial Cells Occ /LPF Urine Bacteria 0 /HPF (0-FEW) Laboratory Tests 01/17/19 13:25 Laboratory Tests 01/17/19 13:25 EKG EKG [] Radiology/Procedures Radiology/Procedures [][facility] [address] [place], [place] [id number] IMAGING REPORT Signed PATIENT: EKV MOFFETTOUNT: [id number] : 1945 LOCATION: ER AGE: 73 SEX: F EXAM STATUS: REG ER ORD. PHYSICIAN: BATSHEVA GÓMEZ MD REASON: UPPER abdominal pain PROCEDURE: CT ABDOMEN PELVIS WO CONTRAST CT Abdomen and Pelvis without contrast History: Upper abdominal pain Technique: Noncontrast CT imaging was performed of the abdomen and pelvis. Multiplanar images are reviewed. Exposure: One or more of the following individualized dose reduction techniques were utilized for this examination: 1. Automated exposure control 2. Adjustment of the mA and/or kV according to patient size 3. Use of iterative reconstruction technique. Comparison: March 13, 2018 Findings: There is calcified granuloma of the visualized left lower lobe. There is cholelithiasis. There is no adrenal nodularity. Accurate evaluation of abdominal visceral organs is limited without intravenous contrast, no obvious focal abnormality of the liver, spleen, pancreas. There is again right pelvic kidney. There is no hydronephrosis. Accurate evaluation of abdominal visceral organs is limited without oral contrast. Bowel is not significantly dilated. There is no free air or free fluid. There are some air-fluid levels in the colon. There is sigmoid diverticulosis. In is difficult to exclude degree of sigmoid and descending colon wall thickening on this exam, no adjacent inflammatory-type change. Appendix is not confidently identified on this exam, no significant pericecal inflammatory type change. There is some scattered atherosclerotic calcification of abdominal aorta and iliac arteries. There is multilevel lumbar facet degenerative change. There is advanced L4-5 degenerative disc disease. There is grade 1 anterior spondylolisthesis L4-5. There is probable moderate to severe spinal stenosis at L4-5. There is likely at least moderate left greater than right L4-5 neural foramina compromise. There is mild lumbar levoscoliosis. Impression: 1. There is cholelithiasis. 2. There is again right pelvic kidney. There is no hydronephrosis of either kidney. 3. It is difficult to exclude component of sigmoid and descending colonic wall thickening as could be seen with colitis in the appropriate clinical setting although findings could be due to incomplete distention. There are some nonspecific air-fluid levels in the colon. Appendix is not confidently identified on this exam. There is sigmoid diverticulosis. 4. There is grade 1 anterior spondylolisthesis L4-5 at which there is facet degenerative change. There is also fairly advanced L4-5 degenerative disc disease and suspected moderate to severe spinal stenosis, also bilateral neural foramina compromise. Electronically signed by: Pablo Wu MD (01/17/2019 1:33 PM) [id number] DICTATED and SIGNED BY: PABLO WU MD DATE: 01/17/19 1333 Course & Med Decision Making Course & Med Decision Making Pertinent Labs and Imaging studies reviewed. (See chart for details) Evaluation of patient in ER showed 73-year-old male patient with complaining of abdominal pain and anorexia with abdominal distention. CT showed cholelithiasis and nonspecific air fluid levels with colitis. Patient had leukocytosis. Patient felt better with after treatment with IV fluid, Zofran, fentanyl. Patient re quiring admission for further evaluation and treatment. Discussed with Dr. Tenorio who is in agreement with admission. Discussed findings and plan with patient and family, who acknowledge understanding and agreement. Dragon Disclaimer Dragon Disclaimer This electronic medical record was generated, in whole or in part, using a voice recognition dictation system. Departure Departure Impression: Primary Impression: Abdominal pain Additional Impressions: Cholelithiasis Pelvic kidney Leukocytosis Colitis Disposition: 09 ADMITTED INPATIENT (at 1446) Admitting Physician: Sharad Tenorio (accepted admission at 1445) Condition: IMPROVED Referrals: SHARAD TENORIO MD (PCP) Problem Qualifiers Primary Impression: Abdominal pain Abdominal location: generalized Qualified Codes: R10.84 - Generalized abdominal pain Additional Impressions: Cholelithiasis Cholelithiasis location: gallbladder Cholecystitis presence: without cholecystitis Biliary obstruction: without biliary obstruction Qualified Codes: K80.20 - Calculus of gallbladder without cholecystitis without obs truction Leukocytosis Leukocytosis type: unspecified Qualified Codes: D72.829 - Elevated white blood cell count, unspecified BATSHEVA GÓMEZ MD Jan 17, 2019 14:18
[2019-01-17 14:25] LABS: BACTERIA,URINE 0 /HPF (0-FEW); RBC,URINE OCC /HPF (0-2); SQUAMOUS EPITHELIAL CELL,UR OCC /LPF; WBC,URINE OCC /HPF (0-4)
[2019-01-17] MEDS ORDERED: ONDANSETRON PF 4 MG/2 ML VIAL. IV PRN (15:30)
[2019-01-17] MEDS ORDERED: fentaNYL PF VIAL 100 MCG/2 ML VIAL IV PRN (15:30)
[2019-01-17 16:30] VITALS: BP 190/79
[2019-01-17] MEDS ORDERED: ALPRAZolam 1 MG TABLET PO PRN (17:30)
--- NOTE | 2019-01-17 19:16 | NUR ---
The patient, KEV MOFFETT, 73 y/o, F admitted by Dr. Oquendo in the E.R. When pt arrived to the floor, she asked for info on why she was being admitted. States she was not given a proper explanation of her diagnosis, nor given the opportunity to discuss or comprehend what was going on at the time. Pt states she was in a bit of shock that she would be "only staying for observation" admitted for stomach discomfort and what she thought was a sinus infection. Pt was not told that she would be NPO, not told that she couldn't have her medications. Pt states she does not feel it appropriate to be admitted and would like to discharged. Per Dr. Solis, unable to DC pt w/o being seen. Explained this and AMA form to pt, pt signed AMA form and Verbalized understanding. Was accompanied home by her .
[2019-01-17] MEDS ORDERED: hydrALAZINE 25 MG TABLET PO SCH (21:00)
[2019-01-17] MEDS ORDERED: cloNIDine HCL 0.2 MG TABLET PO SCH (21:00)
[2019-01-18] MEDS ORDERED: PANTOPRAZOLE 40 MG TABLET.DR. PO SCH (07:30)
[2019-01-18] MEDS ORDERED: POTASSIUM CHLORIDE 20 MEQ TABLET.ER. PO SCH (08:00)
[2019-01-18] MEDS ORDERED: POLYETHYLENE GLYCOL 3350 17 GM PACKET. PO SCH (09:00)
[2019-01-18] MEDS ORDERED: MULTIVITAMIN with MINERAL TABLET. PO SCH (09:00)
[2019-01-18] MEDS ORDERED: LOSARTAN POTASSIUM 50 MG TABLET. PO SCH (09:00)
[2019-01-18] MEDS ORDERED: CHOLECALCIFEROL (VITAMIN D3) 5,000 UNIT CAPSULE PO SCH (09:00)
[2019-01-18] MEDS ORDERED: CYANOCOBALAMIN (VITAMIN B-12) 1,000 MCG TABLET. PO SCH (09:00)
== END 2019-01-17 19:36 | disposition left against medical advice (07) ==
LOC: ER 12:25 → 5 SOUTH 14:29 → UNDOADMIN 14:29 → 5 SOUTH 14:29 → UNDODISIN 19:36
PROVIDERS: ADMIT Family Medicine; ATTEND Family Medicine
DX: K80.20 Calculus of gallbladder without cholecystitis without obstruction (principal); K52.9 Noninfective gastroenteritis and colitis, unspecified; N28.9 Disorder of kidney and ureter, unspecified; D72.829 Elevated white blood cell count, unspecified
CPT/HCPCS: 36415; 74176; 80053; 81001; 83690; 84484; 85007; 85025; 85610; 87086; 96361; 96374; 96375; 96376; 99284; G0378; J2405; J3010; J7030; 99285; G0379

== ENCOUNTER → 2020-06-06 | Outpatient (CLI) | payer MEDICARE ==
[~2020-06-06] MED LIST changes: +IRBE300T23 PO; -IRBE300T3 PO; +MULT-445 PO; -MULT1TAB52 PO; -POTA10TA12 PO; +POTA20TA4 PO; -POTA20TA82 PO; +POTASSIUM CHLO10 ME1 PO
--- NOTE | 2020-06-06 11:04 | [facility] ---
EXAMINATION: Magnetic resonance imaging (MRI) of the cervical spine without contrast 06/06/2020 9:02 AM HISTORY: Bilateral arm weakness, cervical stenosis. Chronic neck pain and bilateral upper extremity w eakness. TECHNIQUE: Multiplanar multi-weighted MRI of the cervical spine was performed without intravenous con trast using the standard cervical spine protocol. Contrast information: None administered COMPARISON: MRI cervical spine 11/01/2017 FINDINGS: There is levoconvex scoliosis of the thoracic spine. There is minimal retrolisthesis of C6 on C7. Davide tebral body heights are maintained. No significant marrow edema. Mild Modic type I endplate degenerat mike changes identified at C4-C5 and C5-C6 and C6-C7. There is moderate disc height loss at C5-C6 and C6-C7. Mild disc height loss at C4-C5. Posterior fossa is normal in appearance. Vertebral artery flow voids are maintained. Craniocervical junction is intact. Atlantoaxial articulation is normal. C2-C3: There is a disc bulge with central disc protrusion. Mild left facet arthropathy. No neuroforam inal or spinal canal stenosis. C3-C4: There is a posterior discussed by complex with central disc extrusion. Moderate left and moder ate facet arthropathy. Mild left uncovertebral joint disease. Moderate to severe left neuroforaminal stenosis. Mild spinal canal stenosis, exacerbated by ligamentum flavum infolding. There is no deformi ty of the cord or cord signal alteration. C4-C5: There is a posterior disc osteophyte complex. Moderate left and mild right facet arthropathy. Moderate uncovertebral joint disease. Moderate bilateral neuroforaminal stenosis, left greater than r ight. Mild to moderate spinal canal stenosis, exacerbated by ligamentum flavum infolding. Mild deform ity of the cord without cord signal alteration. C5-C6: There is a posterior disc osteophyte complex with central disc extrusion. There is moderate le ft facet arthropathy. Moderate uncovertebral joint disease, left greater than right. Moderate bilater al neuroforaminal stenosis. Mild spinal canal stenosis without deformity of the cord or cord signal a lteration. C6-C7: There is a posterior disc osteophyte complex with right central disc extrusion. There is facet arthropathy and moderate uncovertebral joint disease. There is moderate bilateral neuroforaminal sada nosis. Mild to moderate spinal canal stenosis without deformity of the cord or cord signal alteration . C7-T1: Posterior disc osteophyte complex. Mild facet arthropathy. Mild uncovertebral joint disease. M oderate left and mild right neuroforaminal stenosis. Mild spinal canal stenosis without deformity of the cord or cord signal alteration. T1-T2: There is a posterior disc osteophyte complex. There is facet arthropathy. Moderate right and m ild left neuroforaminal stenosis. Mild spinal canal stenosis without deformity of the cord or cord si gnal alteration. T2-T3: There is a circumferential disc bulge. There is mild facet arthropathy. Moderate right and mil d left neuroforaminal stenosis. Mild spinal canal stenosis without deformity of the cord or cord sign al alteration. IMPRESSION: Moderate degenerative changes of the cervical spine, as described in detail above. Electronically signed by: Rosie Jaffe MD (06/06/2020 11:02 AM) [id number]
== END ==
LOC: KCIC MRI 08:32
PROVIDERS: ATTEND Family Medicine
DX: M47.22 Other spondylosis with radiculopathy, cervical region (principal); R29.898 Other symptoms and signs involving the musculoskeletal system; M48.02 Spinal stenosis, cervical region
CPT/HCPCS: 72141

== ENCOUNTER 2020-07-07 01:43 | Emergency (ER) | payer MEDICARE ==
[~2020-07-07] VITALS: Ht 172.7 cm; Wt 83.6 kg
[2020-07-07 02:52] LABS: BASO # 0.1 x10^3/uL (0.0-0.2); BASO % 1 % (0-3); EOS # 0.4 x10^3/uL (0.0-0.7); EOS % 4 % (0-3); HEMATOCRIT 35.4 % (36.0-47.0); HEMOGLOBIN 11.6 g/dL (12.0-15.5); LYMPH # 3.3 x10^3/uL (1.0-4.8); LYMPH % 39 % (24-48); MEAN CORPUSCULAR HEMOGLOBIN 28 pg (25-35); MEAN CORPUSCULAR HGB CONC 33 g/dL (31-37); MEAN CORPUSCULAR VOLUME 87 fL (79-100); MONO # 0.6 x10^3/uL (0.0-1.1); MONO % 7 % (0-9); NEUT % 48 % (31-73); PLATELET COUNT 306 x10^3/uL (140-400); RED BLOOD COUNT 4.08 x10^6/uL (3.50-5.40); RED CELL DISTRIBUTION WIDTH 13.4 % (11.5-14.5); WHITE BLOOD COUNT 8.3 x10^3/uL (4.0-11.0)
[2020-07-07 02:54] LABS: BILIRUBIN,URINE NEGATIVE (NEG); CLARITY,URINE CLEAR; COLOR,URINE YELLOW; NITRITE,URINE NEGATIVE (NEG); PROTEIN,URINE NEGATIVE (NEG-TRACE); UROBILINOGEN,URINE 0.2 mg/dL (0.2 mg/dL)
[2020-07-07 02:59] LABS: BACTERIA,URINE 0 /HPF (0-FEW); RBC,URINE OCC /HPF (0-2)
[2020-07-07 03:02] LABS: CALCIUM 8.7 mg/dL (8.5-10.1); CREATININE 1.2 mg/dL (0.6-1.0)
[2020-07-07 03:03] LABS: GFR 53.4; POTASSIUM 4.4 mmol/L (3.5-5.1)
[2020-07-07 03:08] LABS: ALBUMIN 3.5 g/dL (3.4-5.0); ALBUMIN/GLOBULIN RATIO 1.1 (1.0-1.7); TOTAL BILIRUBIN 0.2 mg/dL (0.2-1.0); TOTAL PROTEIN 6.6 g/dL (6.4-8.2)
--- NOTE | 2020-07-07 03:52 | RAD ---
XR CHEST 1V History: Reason: sob / Spl. Instructions: / History: Comparison: June 07, 2018 Findings: No consolidation or pleural effusion. Normal heart size. No pneumothorax. Impression: 1. No acute cardiopulmonary process. Electronically signed by: Rodolfo Hillman DO (07/07/2020 3:49 AM) [id number]
--- NOTE | 2020-07-07 03:57 | RAD ---
CT ABDOMEN+PELVIS WO History: Reason: abd pain / Spl. Instructions: / History: Technique: Noncontrast examination of the abdomen and pelvis. Coronal and sagittal reconstructions we re performed. Exposure: One or more of the following individualized dose reduction techniques were utilized for thi s examination: 1. Automated exposure control 2. Adjustment of the mA and/or kV according to patient size 3. Use of iterative reconstruction technique. Comparison: January 17, 2019 Findings: Lower chest: Calcified left lower lobe pulmonary nodule, likely prior granulomatous disease. Abdomen and pelvis: The liver, spleen, adrenal glands, and pancreas are unremarkable. Cholelithiasis. No gallbladder wall thickening. Right pelvic kidney. No hydronephrosis. No renal calculi. Colonic diverticulosis. Normal appendix. No evidence of bowel obstruction. No pathologic lymphadenopa thy. No ascites. Prior hysterectomy. Atheromatous plaque throughout the nonaneurysmal abdominal aorta and branch vessels. Bones: Multilevel lumbar spondylosis most prominent L4-5. Grade 1 anterolisthesis L4 on L5. Impression: 1. No acute abdominal or pelvic pathology. 2. Cholelithiasis. 3. Unchanged right pelvic kidney. Electronically signed by: Rodolfo Hillman DO (07/07/2020 3:55 AM) [id number]
--- NOTE | 2020-07-07 04:02 | PHYS DOC ---
Past Medical History Past Medical History: Anxiety, Arthritis, Diverticulitis, Hypertension Additional Past Medical Histor: ECTOPIC KIDNEY, RIGHT LEG LYMPHEDEMA Past Surgical History: Hysterectomy, Other Additional Past Surgical Histo: LUMBARECTOMY, R KNEE ARTHROSCOPY Smoking Status: Never Smoker Alcohol Use: Rarely Drug Use: None General Adult EDM: Chief Complaint: ABDOMINAL PAIN HPI: HPI: Patient is a 74 year old female presents presents for evaluation of neck pain back pain urinary urgency and constipation x1 week. Review of Systems: Review of Systems: Review of systems: Constitutional symptoms- No fever, positive chills. Eyes- No Discharge, No Visual Loss Respiratory symptoms- No shortness of breath, No wheezing, No Dyspnea on Exertion Cardiovascular Systems; No chest pain, No Palpitations, No syncope Gastrointestinal symptoms: NO abdominal pain, no nausea, no vomiting or diarrhea. Genitourinary symptoms: No dysuria. Positive urinary urgency Musculoskeletal symptoms: No back pain No extremity pain. Positive myalgia NEUROLOGICAL Symptoms: No headache, no generalized weakness; No focal Weakness Heart Score: C/O Chest Pain: N/A Risk Factors: Risk Factors: DM, Current or recent (<one month) smoker, HTN, HLP, family history of CAD, obesity. Risk Scores: Score 0 - 3: 2.5% MACE over next 6 weeks - Discharge Home Score 4 - 6: 20.3% MACE over next 6 weeks - Admit for Clinical Observation Score 7 - 10: 72.7% MACE over next 6 weeks - Early Invasive Strategies Allergies: Allergies: Allergies Coded Allergies Type Severity Reaction Last Updated Verified codeine Allergy Severe CONVULSION, TACHYCARDIA, RASH 01/10/18 Yes iodine Allergy Severe CONVULSION, TACHYCARDIA, RASH 01/10/18 Yes Iodinated Contrast Media Allergy Intermediate Itching 01/17/19 Yes caffeine Adverse Reaction Severe Palpitations, TACHYCARDIA 01/10/18 Yes ibuprofen Adverse Reaction Intermediate HX OF ULCERS 01/10/18 Yes Physical Exam: PE: General: alert, no acute distress. Skin: warm, dry and intact. Head:: Normocephalic, atraumatic. Neck: Trachea midline. Eyes: EOMI, Normal conjunctiva, No drainage CARDIOVASCULAR: Regular rate and rhythm RESPIRATORY: No respiratory distress Back: Full range of motion. MUSCULOSKELETAL: Full range of motion of bilateral upper and lower extremities. GASTROINTESTINAL: Abdomen soft without rebound or guarding. NEUROLOGICAL: Alert and noted to person, place and time. No neurological deficits observed Psychiatric: Cooperative. Normal judgment Current Patient Data: Labs: Laboratory Tests Test 07/07/20 01:45 07/07/20 02:45 Urine Collection Type Unknown Urine Color Yellow Urine Clarity Clear Urine pH 7.0 (<5.0-8.0) Urine Specific [place] 1.010 (1.000-1.030) Urine Protein Negative mg/dL (NEG-TRACE) Urine Glucose (UA) Negative mg/dL (NEG) Urine Ketones (Stick) Negative mg/dL (NEG) Urine Blood Negative (NEG) Urine Nitrite Negative (NEG) Urine Bilirubin Negative (NEG) Urine Urobilinogen Dipstick 0.2 mg/dL (0.2 mg/dL) Urine Leukocyte Esterase Small (NEG) Urine RBC Occ /HPF (0-2) Urine WBC 1-4 /HPF (0-4) Urine Squamous Epithelial Cells Few /LPF Urine Transitional Epithelial Cells Occ /LPF Urine Bacteria 0 /HPF (0-FEW) Urine Mucus Slight /LPF White Blood Count 8.3 x10^3/uL (4.0-11.0) Red Blood Count 4.08 x10^6/uL (3.50-5.40) Hemoglobin 11.6 g/dL (12.0-15.5) L Hematocrit 35.4 % (36.0-47.0) L Mean Corpuscular Volume 87 fL (79-100) Mean Corpuscular Hemoglobin 28 pg (25-35) Mean Corpuscular Hemoglobin Concent 33 g/dL (31-37) Red Cell Distribution Width 13.4 % (11.5-14.5) Platelet Count 306 x10^3/uL (140-400) Neutrophils (%) (Auto) 48 % (31-73) Lymphocytes (%) (Auto) 39 % (24-48) Monocytes (%) (Auto) 7 % (0-9) Eosinophils (%) (Auto) 4 % (0-3) H Basophils (%) (Auto) 1 % (0-3) Neutrophils # (Auto) 4.0 x10^3/uL (1.8-7.7) Lymphocytes # (Auto) 3.3 x10^3/uL (1.0-4.8) Monocytes # (Auto) 0.6 x10^3/uL (0.0-1.1) Eosinophils # (Auto) 0.4 x10^3/uL (0.0-0.7) Basophils # (Auto) 0.1 x10^3/uL (0.0-0.2) Sodium Level 133 mmol/L (136-145) L Potassium Level 4.4 mmol/L (3.5-5.1) Chloride Level 100 mmol/L (98-107) Carbon Dioxide Level 25 mmol/L (21-32) Anion Gap 8 (6-14) Blood Urea Nitrogen 10 mg/dL (7-20) Creatinine 1.2 mg/dL (0.6-1.0) H Estimated GFR (Cockcroft-Gault) 53.4 BUN/Creatinine Ratio 8 (6-20) Glucose Level 100 mg/dL (70-99) H Calcium Level 8.7 mg/dL (8.5-10.1) Total Bilirubin 0.2 mg/dL (0.2-1.0) Aspartate Amino Transferase (AST) 16 U/L (15-37) Alanine Aminotransferase (ALT) 19 U/L (14-59) Alkaline Phosphatase 88 U/L (46-116) Total Protein 6.6 g/dL (6.4-8.2) Albumin 3.5 g/dL (3.4-5.0) Albumin/Globulin Ratio 1.1 (1.0-1.7) Lipase 147 U/L (73-393) Laboratory Tests 07/07/20 02:45 Laboratory Tests 07/07/20 02:45 Vital Signs: Vital Signs Date Time Temp Pulse Resp B/P (MAP) Pulse Ox O2 Delivery O2 Flow Rate FiO2 07/07/20 03:15 54 161/74 (103) 97 Room Air 07/07/20 02:10 98.0 18 98.0 EKG: EKG: [] Radiology/Procedures: Radiology/Procedures: [] Course & Med Decision Making: Course & Med Decision Making Pertinent Labs and Imaging studies reviewed. (See chart for details) [] Dragon Disclaimer: Dragon Disclaimer: This electronic medical record was generated, in whole or in part, using a voice recognition dictation system. Departure Departure Impression: Primary Impression: UTI (urinary tract infection) Disposition: 01 DC HOME SELF CARE/HOMELESS Condition: STABLE Referrals: LAURYN DE LA FUENTE MD (PCP) Patient Instructions: Urinary Tract Infection Scripts Nitrofurantoin Monohyd/M-Cryst (MACROBID 100 MG CAPSULE) 100 Mg Capsule 1 CAP PO BID for 5 Days, #10 CAP 0 Refills Prov: YOLIE MONTEMAYOR DO 07/07/20 YOLIE MONTEMAYOR DO Jul 07, 2020 04:02
[2020-07-07] MEDS ORDERED: NITR100C62 PO (04:14)
[2020-07-07 04:23] VITALS: BP 176/74
== END 2020-07-07 04:39 | disposition home or self-care (01) ==
LOC: ER 01:43
DX: N39.0 Urinary tract infection, site not specified (principal); R35.0 Frequency of micturition; M54.2 Cervicalgia; M54.9 Dorsalgia, unspecified; F41.9 Anxiety disorder, unspecified; M19.90 Unspecified osteoarthritis, unspecified site; I10 Essential (primary) hypertension; Z90.710 Acquired absence of both cervix and uterus; Z98.890 Other specified postprocedural states; Z88.5 Allergy status to narcotic agent; Z91.041 Radiographic dye allergy status; Z91.040 Latex allergy status; Z88.8 Allergy status to other drugs, medicaments and biological substances
CPT/HCPCS: 36415; 71045; 74176; 80053; 81001; 83690; 85025; 87086; 99285

== ENCOUNTER 2020-07-21 00:39 | Emergency (ER) | payer MEDICARE ==
[~2020-07-21] VITALS: Ht 172.7 cm; Wt 83.1 kg
[~2020-07-21 00:39] MED LIST changes: +NITR100C62 PO
[2020-07-21 01:59] LABS: BASO # 0.1 x10^3/uL (0.0-0.2); BASO % 1 % (0-3); EOS # 0.4 x10^3/uL (0.0-0.7); EOS % 4 % (0-3); HEMATOCRIT 34.8 % (36.0-47.0); HEMOGLOBIN 11.6 g/dL (12.0-15.5); LYMPH # 3.3 x10^3/uL (1.0-4.8); LYMPH % 35 % (24-48); MEAN CORPUSCULAR HEMOGLOBIN 29 pg (25-35); MEAN CORPUSCULAR HGB CONC 33 g/dL (31-37); MEAN CORPUSCULAR VOLUME 86 fL (79-100); MONO # 0.6 x10^3/uL (0.0-1.1); MONO % 7 % (0-9); NEUT # 4.9 x10^3/uL (1.8-7.7); NEUT % 53 % (31-73); PLATELET COUNT 342 x10^3/uL (140-400); RED BLOOD COUNT 4.06 x10^6/uL (3.50-5.40); RED CELL DISTRIBUTION WIDTH 13.4 % (11.5-14.5); WHITE BLOOD COUNT 9.4 x10^3/uL (4.0-11.0)
[2020-07-21 02:11] LABS: CALCIUM 9.3 mg/dL (8.5-10.1); CREATININE 1.3 mg/dL (0.6-1.0); GFR 48.7; POTASSIUM 5.1 mmol/L (3.5-5.1)
[2020-07-21 02:20] LABS: ALBUMIN 3.9 g/dL (3.4-5.0); ALBUMIN/GLOBULIN RATIO 1.3 (1.0-1.7); TOTAL BILIRUBIN 0.2 mg/dL (0.2-1.0)
[2020-07-21] MEDS ORDERED: IV NORMAL SALINE 1000ML BAG 1,000 ML IV ONE (02:45)
--- NOTE | 2020-07-21 03:42 | PHYS DOC ---
Past Medical History Past Medical History: Anxiety, Arthritis, Diverticulitis, Hypertension Additional Past Medical Histor: ECTOPIC KIDNEY, RIGHT LEG LYMPHEDEMA Past Surgical History: Hysterectomy, Other Additional Past Surgical Histo: LUMBARECTOMY, R KNEE ARTHROSCOPY Smoking Status: Never Smoker Alcohol Use: Rarely Drug Use: None Adult General Chief Complaint Chief Complaint: ABNORMAL LABS HPI HPI Patient is a 74 year old female who notes a history of a right pelvic kidney and chronic hyponatremia presents emergency department because of an abnormal lab. Patient states that she has been having generalizeD sensation of achiness over the last 3 days. Patient states on Tuesday she went to an urgent care with a blood work and noted that she had an abnormal lab. Patient thinks that they stated that her sodium was low but she is not sure. She attempted to call her primary care physician but they have been out of town. Denies any recent fever, chills, nausea, vomiting, dizziness, lightheadedness, numbness or weakness. Review of Systems Review of Systems Constitutional: Denies fever or chills [] Eyes: Denies change in visual acuity, redness, or eye pain [] HENT: Denies nasal congestion or sore throat [] Respiratory: Denies cough or shortness of breath [] Cardiovascular: No additional information not addressed in HPI [] GI: Denies abdominal pain, nausea, vomiting, bloody stools or diarrhea [] : Denies dysuria or hematuria [] Musculoskeletal: Denies back pain or joint pain [] Integument: Denies rash or skin lesions [] Neurologic: Denies headache, focal weakness or sensory changes [] Endocrine: Denies polyuria or polydipsia [] All other systems were reviewed and found to be within normal limits, except as documented in this note. Current Medications Current Medications Current Medications Medications (Trade) Dose Ordered Sig/Derrick Start Time Stop Time Status Last Admin Dose Admin Sodium Chloride 1,000 ml @ 1,000 mls/hr 1X ONCE 07/21/20 02:45 07/21/20 03:44 07/21/20 02:59 1,000 MLS/HR Allergies Allergies Allergies Coded Allergies Type Severity Reaction Last Updated Verified codeine Allergy Severe CONVULSION, TACHYCARDIA, RASH 01/10/18 Yes iodine Allergy Severe CONVULSION, TACHYCARDIA, RASH 01/10/18 Yes Iodinated Contrast Media Allergy Intermediate Itching 01/17/19 Yes caffeine Adverse Reaction Severe Palpitations, TACHYCARDIA 01/10/18 Yes ibuprofen Adverse Reaction Intermediate HX OF ULCERS 01/10/18 Yes Physical Exam Physical Exam Constitutional: Well developed, well nourished, no acute distress, non-toxic appearance. [] HENT: Normocephalic, atraumatic, bilateral external ears normal, oropharynx moist, no oral exudates, nose normal. [] Eyes: PERRLA, EOMI, conjunctiva normal, no discharge. [] Neck: Normal range of motion, no tenderness, supple, no stridor. [] Cardiovascular:Heart rate regular rhythm, no murmur [] Lungs & Thorax: Bilateral breath sounds clear to auscultation [] Abdomen: Bowel sounds normal, soft, no tenderness, no masses, no pulsatile masses. [] Skin: Warm, dry, no erythema, no rash. [] Back: No tenderness, no CVA tenderness. [] Extremities: No tenderness, no cyanosis, no clubbing, ROM intact, no edema. [] Neurologic: Alert and oriented X 3, normal motor function, normal sensory function, no focal deficits noted. [] Psychologic: Affect normal, judgement normal, mood normal. [] Current Patient Data Vital Signs Vital Signs Date Time Temp Pulse Resp B/P (MAP) Pulse Ox O2 Delivery O2 Flow Rate FiO2 07/21/20 02:36 46 27 130/64 (86) 98 Room Air 07/21/20 01:30 98.6 98.6 Lab Values Laboratory Tests Test 07/21/20 01:52 White Blood Count 9.4 x10^3/uL (4.0-11.0) Red Blood Count 4.06 x10^6/uL (3.50-5.40) Hemoglobin 11.6 g/dL (12.0-15.5) L Hematocrit 34.8 % (36.0-47.0) L Mean Corpuscular Volume 86 fL (79-100) Mean Corpuscular Hemoglobin 29 pg (25-35) Mean Corpuscular Hemoglobin Concent 33 g/dL (31-37) Red Cell Distribution Width 13.4 % (11.5-14.5) Platelet Count 342 x10^3/uL (140-400) Neutrophils (%) (Auto) 53 % (31-73) Lymphocytes (%) (Auto) 35 % (24-48) Monocytes (%) (Auto) 7 % (0-9) Eosinophils (%) (Auto) 4 % (0-3) H Basophils (%) (Auto) 1 % (0-3) Neutrophils # (Auto) 4.9 x10^3/uL (1.8-7.7) Lymphocytes # (Auto) 3.3 x10^3/uL (1.0-4.8) Monocytes # (Auto) 0.6 x10^3/uL (0.0-1.1) Eosinophils # (Auto) 0.4 x10^3/uL (0.0-0.7) Basophils # (Auto) 0.1 x10^3/uL (0.0-0.2) Sodium Level 131 mmol/L (136-145) L Potassium Level 5.1 mmol/L (3.5-5.1) Chloride Level 96 mmol/L (98-107) L Carbon Dioxide Level 22 mmol/L (21-32) Anion Gap 13 (6-14) Blood Urea Nitrogen 20 mg/dL (7-20) Creatinine 1.3 mg/dL (0.6-1.0) H Estimated GFR (Cockcroft-Gault) 48.7 BUN/Creatinine Ratio 15 (6-20) Glucose Level 104 mg/dL (70-99) H Calcium Level 9.3 mg/dL (8.5-10.1) Total Bilirubin 0.2 mg/dL (0.2-1.0) Aspartate Amino Transferase (AST) 22 U/L (15-37) Alanine Aminotransferase (ALT) 23 U/L (14-59) Alkaline Phosphatase 115 U/L (46-116) Total Protein 7.0 g/dL (6.4-8.2) Albumin 3.9 g/dL (3.4-5.0) Albumin/Globulin Ratio 1.3 (1.0-1.7) Lipase 196 U/L (73-393) Laboratory Tests 07/21/20 01:52 Laboratory Tests 07/21/20 01:52 EKG EKG [] Radiology/Procedures Radiology/Procedures [] Course & Med Decision Making Course & Med Decision Making Pertinent Labs and Imaging studies reviewed. (See chart for details) 74-year-old female presenting the emergency department for possible hyponatremia. Will obtain labs and determine need for intervention. Labs do demonstrate mild hyponatremia. Will provide fluids and plan for discharge home. Dragon Disclaimer Dragon Disclaimer This electronic medical record was generated, in whole or in part, using a voice recognition dictation system. Departure Departure Impression: Primary Impression: Hyponatremia Disposition: HOME / SELF CARE / HOMELESS Condition: GOOD Referrals: LAURYN DE LA FUENTE MD (PCP) Patient Instructions: Hyponatremia Additional Instructions: EMERGENCY DEPARTMENT GENERAL DISCHARGE INSTRUCTIONS Thank you for coming to [facility] Emergency Department (ED) today and trusting us with you care. We trust that you had a positive experience in our Emergency Department. If you wish to speak to the department management, you may call the Director at [phone]. YOUR FOLLOW UP INSTRUCTIONS ARE FOLLOWS: 1. Do you have a private Doctor? If you do not have a private doctor, please ask for a resource list of physicians or clinics that may be able to assist you with follow up care. 2. The Emergency Physicain has interpreted your x-rays. The X-Ray specialist will also review them. If there is a change in the findings, you will be notified in 48 hours when at all possible. 3. A lab test or culture has been done, your results will be reviewed and you will be notified if you need a change in treatment. ADDITIONAL INSTRUCTIONS AND INFORMATION: 1. Your care today has been supervised by a physician who is specially trained in emergency care. Many problems require more than one evaluation for a complete diagnosis and treatment. We recommend that you schedule your follow up appointment as recommended to ensure complete treatment of you illness or injury. If you are unable to obtain follow up care and continue to have a problem, or if your condition worsens, we recommend that you return to the ED. 2. We are not able to safely determine your condition over the phone nor are we able to give sound medical advice over the phone. For these safety reasons, if you call for medical advice we will ask you to come to the ED for further evaluation. 3. If you have any questions regarding these discharge instructions please call the ED at [phone]. SAFETY INFORMATION: In the interest of safety, wellness, and injury prevention; we encourage you to wear your sealbelt, if you smoke; quite smoking, and we encourage family to use a protective helmet for bicycling and other sporting events that present an increased risk for head injury. IF YOUR SYMPTOMS WORSEN OR NEW SYMPTOMS DEVELOP, OR YOU HAVE CONCERNS ABOUT YOUR CONDITION; OR IF YOUR CONDITION WORSENS WHILE YOU ARE WAITING FOR YOUR FOLLOW UP APPOINTMENT; EITHER CONTACT YOUR PRIMARY CARE DOCTOR, THE PHYSICIAN WHOSE NAME AND NUMBER YOU WERE GIVEN, OR RETURN TO THE ED IMMEDIATELY. LEIA BULLOCK MD Jul 21, 2020 03:41
[2020-07-21 04:06] VITALS: BP 178/72
== END 2020-07-21 04:35 | disposition home or self-care (01) ==
LOC: ER 00:39
DX: E87.1 Hypo-osmolality and hyponatremia (principal); R20.2 Paresthesia of skin; F41.9 Anxiety disorder, unspecified; M19.90 Unspecified osteoarthritis, unspecified site; I10 Essential (primary) hypertension; Z90.710 Acquired absence of both cervix and uterus; Z98.890 Other specified postprocedural states; Z88.5 Allergy status to narcotic agent; Z91.041 Radiographic dye allergy status; Z88.8 Allergy status to other drugs, medicaments and biological substances
CPT/HCPCS: 36415; 80053; 83690; 85025; 96360; 99285; J7030

== ENCOUNTER → 2020-08-20 | Outpatient (CLI) | payer MEDICARE ==
[2020-07-21 04:06] VITALS: BP 178/72
[~2020-08-20] MED LIST changes: +REGADENOSON 0.4 MG/5 ML DISP.SYRIN. IV ONE
--- NOTE | 2020-08-20 16:23 | RAD ---
MR#: [id number] Date of Study: 08/20/2020 Ordering Physician: BONNIE BARNETT, Referring Physician: GUILLERMINA CHANG Tech: ИВАН Palma, ARRT (R) (N) APPROVED REPORT Test Type: Pharmacological Stress Nurse/Tech: Eleanor Cotton RN Test Indications: Dyspnea Cardiac History: Hypertension Medications: See Electronic Medical Record Medical History: See Electronic Medical Record Resting ECG: SB with BBB Resting Heart Rate: 47 bpm Resting Blood Pressure: 151/78mmHg Pretest Chest Pain: No chest pain Nurse/Tech Notes S1,S2 and lungs clear to auscultation. Consent: The procedure was explained to the patient in lay terms. Informed consent was witnessed. Vega eout was entered into [employer]. History and Stress Test performed by RT Yordy (Robina) (N) Pharm. Details Pharmacologic stress testing was performed using 0.4mg per 5ml of regadenoson given intravenously ove r 7-10 seconds. Stress Symptoms Nausea,headache POST EXERCISE Reason for Termination: Infusion complete Target HR: No Max Blood Pressure: 193/84mmHg Blood Pressure response to exercise: Normal blood pressure response during stress. Heart Rate response to exercise: WNL Chest Pain: No. Arrhythmia: No. ST Change: No. INTERPRETATION Stress EKG Conclusion: Baseline EKG showed sinus rhythm. No ischemic changes at peak stress. No arr hythmias. Imaging Protocol IMAGE PROTOCOL: Rest Tc-99m/stress Tc-99m 1 day Rest: Stress: Viability: Radiopharm.Tc99m TjavljaejEe11g Sestamibi Setv05xQn 30mCi Img Date 08/20/2020 08/20/2020 Inj-Img Tkzg07gah. 60min. Rest Admin Site:IV - Right HandAdministrator:RT Hubert Scales)(N) Stress Admin Site: IV - Right HandAdministrator: RT Hubert Scales)(N) STRESS DATA End Diast. Vol.49.0mlAv. Heart Rate53.0bpm End Syst. Vol.7.0mlCO Index BSA2.2L/min Myocardial Mass91.0gEject. Zlpcbxbt84.0% Stress Rates Pk. Fill Rate2.63EDV/secLVtime Pk. Fill 312.21msec Pk. Empty Rate4.55ESV/secLVtime Pk. Pexke781.56msec 1/3 Pk. Fill0.71EDV/sec Stress Scores Regional WT0.00Summed WT0.00 Regional WM0.00Summed WM1.00 Study quality was good. Left Ventricular size was Normal at Rest and Stress. Lung uptake was . Left Ventricular ejection fraction is 78%. The rest and stress images show normal perfusion, normal contraction and thickening. LV Perf. Quant 17 Seg. SSS0.00 17 Seg. SRS0.00 17 Seg. SDS0.00 Stress Defect Extent (% LAD)0.00Rest Defect Extent (% LAD)0.00Rev. Defect Extent (% LAD)0.00 Stress Defect Extent (% LCX) 0.00Rest Defect Extent (% LCX)0.00Rev. Defect Extent (% LCX)0.00 Stress Defect Extent (% RCA)0.00Rest Defect Extent (% RCA)0.00Rev. Defect Extent (% RCA)0.00 Stress Defect Extent (% MADIHA)0.00Rest Defect Extent (% MADIHA)0.00Rev. Defect Extent (% MADIHA)0.00 Conclusion 1. Regadenoson cardioisotope stress test did not show any evidence of ischemia or infarct. 2. Normal left ventricular systolic function with ejection fraction calculated at 78%. 3. Low risk for cardiac events. Signed by : Bonnie Barnett, Electronically Approved : 08/20/2020 16:23:13
--- NOTE | 2020-08-20 16:44 | CARD ---
MR#: [id number] Date of Study: 08/20/2020 Ordering Physician: BONNIE VENTURA, Referring Physician: Micah CHANG: Luanne Kapoor [facility] APPROVED REPORT EXAM: Two-dimensional and M-mode echocardiogram with Doppler and color Doppler. Other Information Quality : GoodHR: 48bpm Rhythm : NSR INDICATION Edema 2D DIMENSIONS RVDd2.5 (2.9-3.5cm)Left Atrium(2D)3.4 (1.6-4.0cm) IVSd1.1 (0.7-1.1cm)Aortic Root(2D)3.2 (2.0-3.7cm) LVDd4.2 (3.9-5.9cm)LVOT Diameter2.1 (1.8-2.4cm) PWd0.9 (0.7-1.1cm)LVDs2.5 (2.5-4.0cm) FS (%) 40.4 %SV55.2 ml LVEF(%)71.5 (>50%) Aortic Valve AoV Peak Enio.145.5cm/Quinn Peak GR.8.5mmHg LVOT Peak Enio.113.8cm/sAVA (VMAX)2.63cm2 Mitral Valve MV E Hugstyyg17.3cm/sMV DECEL PBGR162ue MV A Elkpxkcc33.2cm/sE/A Ratio1.0 Pulmonary Valve PV Peak Ajxloaqn928.3cm/s Tricuspid Valve TR P. Ztcrlmpt482ui/sRAP TGKFLAGZ3jmGr TR Peak Gr.25mmHg Pulmonary Vein S1 Eqfqstzn12.9cm/sD2 Rtndqrss45.6cm/s PVa ohopkjtf643lcut LEFT VENTRICLE The left ventricle is normal size. There is normal left ventricular wall thickness. The left ventricu lar systolic function is normal. The ejection fraction is estimated at 55-60%. There is normal LV seg mental wall motion. The left ventricular diastolic function is normal. No left ventricle thrombus not ed on this study. There is no ventricular septal defect visualized. There is no left ventricular aneu rysm. There is no mass noted in the left ventricle. RIGHT VENTRICLE The right ventricle is normal size. There is normal right ventricular wall thickness. The right ventr icular systolic function is normal. ATRIA The left atrium size is normal. The right atrium is mildly dilated. The interatrial septum is intact with no evidence for an atrial septal defect or patent foramen ovale as noted on 2-D or Doppler imagi ng. AORTIC VALVE The aortic valve is normal in structure and function. No aortic regurgitation is present. There is no aortic valvular stenosis. There is no aortic valvular vegetation. MITRAL VALVE The mitral valve is normal in structure and function. There is no evidence of mitral valve prolapse. There is no mitral valve stenosis. Doppler and Color-flow revealed mild mitral regurgitation. TRICUSPID VALVE The tricuspid valve is normal in structure and function. Doppler and Color Flow revealed mild to tric uspid regurgitation. PAP 32 mmHg. There is no tricuspid valve prolapse or vegetation. There is no tri cuspid valve stenosis. PULMONIC VALVE The pulmonary valve is normal in structure and function. There is no pulmonic valvular regurgitation. There is no pulmonic valvular stenosis. GREAT VESSELS The aortic root is normal in size. The ascending aorta is normal in size. The pulmonary artery is nor mal. The IVC is normal in size and collapses >50% with inspiration. PERICARDIAL EFFUSION There is no pleural effusion. There is no evidence of significant pericardial effusion. Critical Notification Critical Value: No <Conclusion> The left ventricular systolic function is normal. The ejection fraction is estimated at 55-60%. There is normal LV segmental wall motion. Mild mitral regurgitation. Mild to tricuspid regurgitation. PAP 32 mmHg. There is no evidence of significant pericardial effusion. Signed by : Bonnie Ventura, Electronically Approved : 08/20/2020 16:43:29
== END ==
LOC: NM 09:06
PROVIDERS: ATTEND Internal Medicine Cardiovascular Disease
DX: I08.1 Rheumatic disorders of both mitral and tricuspid valves (principal); R60.9 Edema, unspecified; I10 Essential (primary) hypertension
CPT/HCPCS: 78452; 93017; 93306; A9500; J2785